=== PATIENT | female | born 1985 | race American Indian/Alaskan Native ===

== ENCOUNTER 2021-10-28 10:26 | Outpatient (CLI) | payer SELFPAY ==
[2021-10-28 10:51] VITALS: BP 121/75
--- NOTE | 2021-10-28 12:25 | Ultrasound Report ---
ULTRASOUND OBSTETRIC LIMITED INDICATION / CLINICAL INFORMATION: presentation. TECHNIQUE: Transabdominal. COMPARISON: None available. FINDINGS: HEART RATE (beats per minute): 153 PRESENTATION: Cephalic. ADDITIONAL FINDINGS: None. IMPRESSION: 1. Cephalic presentation with heart rate of 153 bpm. Signer Name: Juan Chand MD Signed: 10/28/2021 12:21 PM Workstation Name: [id number]
[2021-10-28 12:51] LABS: Basophils % (Auto) 0.3 % (0.0-1.8); Eosinophils % (Auto) 0.3 % (0.0-4.3); Hematocrit 33.5 % (30.3-42.9); Hemoglobin 10.7 gm/dl (10.1-14.3); Lymphocytes # (Auto) 1.7 K/mm3 (1.2-5.4); Lymphocytes % (Auto) 22.7 % (13.4-35.0); Mean Corpuscular HGB Conc 32 % (30-34); Mean Corpuscular Volume 82 fl (79-97); Monocytes # (Auto) 0.7 K/mm3 (0.0-0.8); Monocytes % (Auto) 8.8 % (0.0-7.3); Platelet Count 171 K/mm3 (140-440); Red Blood Count 4.07 M/mm3 (3.65-5.03); Red Cell Distribution Width 15.9 % (13.2-15.2)
[2021-10-28 12:53] LABS: Bilirubin,Urine NEG (Negative); Blood,Urine NEG (Negative); Color,Urine Colorless (Yellow); Protein,Urine <15 mg/dL mg/dL (Negative); Urobilinogen,Urine < 2.0 mg/dL (<2.0)
[2021-10-28 12:54] LABS: RBC,Urine < 1.0 /HPF (0.0-6.0); WBC,Urine < 1.0 /HPF (0.0-6.0)
[2021-10-28 13:01] LABS: Amphetamine Screen,Urine Negative; Benzodiazepines Screen,Urine Negative; Cannabinoid Screen,Urine Negative; Cocaine Screen,Urine Negative; Methadone Screen,Urine Negative; Opiate Screen,Urine Negative
[2021-10-28 13:23] LABS: Hepatitis C Virus Antibody Non-Reactive (NonReactive)
== END 2021-10-28 15:30 | disposition home or self-care (01) ==
LOC: TRG 10:26 → APU 10:26 → TRG 15:30
PROVIDERS: ATTEND Obstetrics & Gynecology
DX: O09.93 Supervision of high risk pregnancy, unspecified, third trimester (principal); Z3A.39 39 weeks gestation of pregnancy
CPT/HCPCS: 36415; 59025; 76815; 80307; 81001; 85025; 86592; 86706; 86762; 86803; 86850; 86900; 86901; 87806

== ENCOUNTER 2021-11-07 19:31 | Inpatient (IN) | payer SELFPAY ==
[2021-11-07] MEDS ORDERED: fentaNYL 100 MCG/2 ML INJ IV PRN (23:31)
[2021-11-07] MEDS ORDERED: METHYLERGONOVINE MALEATE 0.2 MG/ML VIAL IM PRN (23:31)
[2021-11-07] MEDS ORDERED: BUTORPHANOL 2 MG/1 ML INJ IV PRN (23:31)
[2021-11-07] MEDS ORDERED: CARBOPROST TROMETHAMINE 250 MCG/1 ML INJ IM PRN (23:31)
[2021-11-07] MEDS ORDERED: ePHEDrine SULFATE 50 MG/1 ML INJ IV PRN (23:31)
[2021-11-07] MEDS ORDERED: ACETAMINOPHEN 325 MG TAB PO PRN (23:31)
[2021-11-07] MEDS ORDERED: TERBUTALINE 1 MG/1 ML INJ SUB-Q PRN (23:31)
[2021-11-07] MEDS ORDERED: miSOPROStol 200 MCG TAB PR PRN (23:31)
[2021-11-07] MEDS ORDERED: ONDANSETRON 4 MG/2 ML INJ IV PRN (23:31)
--- NOTE | 2021-11-07 23:31 | History and Physical Report ---
History of Present Illness Date of examination: 11/07/21 Date of admission: 11/07/2021 Chief complaint: Contractions History of present illness: 36 y/o at 41 weeks gestation presents to OBT reporting rgeular and painful CTX q 5 min. No VB or LOF. Good FM. She received care at [facility]. In OBT, SVE went from 3 cm to 4 cm. She is admitted to L&D in early labor and to augment labor in lieu of post-due date. Past History Past Medical History: no pertinent history Past Surgical History: no surgical history Family/Genetic History: none - Obstetrical History Expected Date of Delivery: 10/31/21 Actual Gestation: 41 Week(s) 1 Day(s) : 5 Para: 2 Hx # Term Pregnancies: 2 Spontaneous Abortions: 2 Medications and Allergies Allergies Allergy/AdvReac Type Severity Reaction Status Date / Time nalbuphine [From Nubain] AdvReac Itching Verified 10/28/21 10:56 Review of Systems All systems: negative - Vital Signs Vital signs: Vital Signs Pulse Pulse Ox 102 H 100 11/07/21 20:05 11/07/21 20:05 Temp Pulse Resp BP Pulse Ox 85 109/71 100 11/07/21 22:24 11/07/21 20:12 11/07/21 22:24 - Physical Exam Breasts: Positive: normal Cardiovascular: Regular rate Lungs: Positive: Normal air movement Abdomen: Positive: normal appearance Genitourinary (Female): Positive: normal external genitalia, normal perenium Vulva: both: normal Vagina: Positive: normal moisture Uterus: Positive: enlarged Adnexa: both: normal Anus/Rectum: Positive: normal perianal skin Extremities: Positive: normal Deep Tendon Reflex Grade: Normal +2 - Obstetrical FHR: category 1 Uterine Contraction Monitor Mode: External Cervical Dilatation: 4 Cervical Effacement Percentage: 60 station: -3 Uterine Contraction Frequency (min): 5 Results Result Diagrams: 11/07/21 23:27 All other labs normal. Ultrasound: report reviewed (OB US Limited= SLIUP. Vertex. EFW= 3781 g. CHOCO= 14 cm. BPP= 10/10.) Assessment and Plan - Patient Problems (1) 41 weeks gestation of Current Visit: Yes Status: Acute Plan to address problem: care is up-to-date at [facility]. Obtain records in AM. GBS status in unknown at this time. Currently, there are no known risk factors for GBS. If there are, then tx with PCN per CDC MMWR 2010 guidelines. (2) Post term at 41 weeks gestation Current Visit: Yes Status: Acute Plan to address problem: Admit to L&D. Augment with Cytotec. When cervix is further ripened, then AROM and Pitocin. (3) Spontaneous onset of labor Current Visit: Yes Status: Acute Plan to address problem: Admit to L&D. Augment with Cytotec. When cervix is further ripened, then AROM and Pitocin.
[2021-11-07] MEDS ORDERED: OXYTOCIN DRIP 30 UNITS/500 ML BAG IV SCH (23:45)
[2021-11-08 00:11] LABS: Hematocrit 33.7 % (30.3-42.9); Hemoglobin 10.8 gm/dl (10.1-14.3); Mean Corpuscular HGB Conc 32 % (30-34); Mean Corpuscular Volume 82 fl (79-97); Platelet Count 182 K/mm3 (140-440); Red Cell Distribution Width 16.2 % (13.2-15.2)
[2021-11-08] MEDS: LACTATED RINGERS 1,000 ML IV SCH ×3 (01:59→11:34)
[2021-11-08] MEDS ORDERED: ePHEDrine SULFATE 50 MG/1 ML INJ IV PRN (02:00)
[2021-11-08] MEDS ORDERED: NALOXONE 2 MG/2 ML INJ IV PRN (02:00)
--- NOTE | 2021-11-08 02:38 | Progress Note ---
Labor Epidural - Labor Epidural Start Time: 02:06 Stop Time: 02:23 Performed by:: SIRENA CARRANZA Procedure: Patient is requesting epidural for labor pain. H&P and labs reviewed. Procedure explained, questions answered, consent obtained. Patient placed in sitting position with monitors applied. Timeout performed immediately before start of procedure. Prep/drape in usual sterile fashion. Skin localized 3 mL 1% lidocaine at L[3]-L[4] interspace. 17-gauge Touhy epidural needle advanced to CHELSEY with saline at [8] cm x 2 attempts. No blood/CSF noted via epidural needle. Epidural catheter advanced to [12] cm. Negative aspiration for blood and CSF via catheter, negative response to test dose 3 ml 1.5% lidocaine w/ Epi. Sterile dressing applied followed by tape reinforcement. Patient tolerated procedure well. No immediate complications noted.
--- NOTE | 2021-11-08 02:40 | Anesthesia Consultation ---
Anesthesia Consult and Med Hx Date of service: 11/08/21 - Airway Anesthetic Teeth Evaluation: Poor ROM Head & Neck: Adequate Mental/Hyoid Distance: Adequate Mallampati Class: Class II Intubation Access Assessment: Probably Good - Pulmonary Exam CTA: Yes - Cardiac Exam Cardiac Exam: RRR - Pre-Operative Health Status ASA Pre-Surgery Classification: ASA2 Proposed Anesthetic Plan: Epidural - Pre-Anesthesia Comment Pre-Anesthesia Comments: no anesthesia complications with other surgeries - Pulmonary Hx Asthma: No COPD: No Hx Pneumonia: No - Cardiovascular System Hx Hypertension: No - Central Nervous System Hx Seizures: No Hx Psychiatric Problems: No - Endocrine Hx Renal Disease: No Hx End Stage Renal Disease: No Hx Hypothyroidism: No Hx Hyperthyroidism: No - Hematic Hx Anemia: Yes (NOT TAKING IRON) Hx Sickle Cell Disease: No - Other Systems Hx Alcohol Use: Yes (1ST TRIMESTER) Hx Obesity: Yes
[2021-11-08] MEDS: fentaNYL-BUPIV 2 MCG/ML-0.125% 200 MCG/100 ML BAG EPIDURAL SCH ×2 (03:53→11:35)
[2021-11-08] MEDS: miSOPROStol 25 MCG TAB PO SCH ×2 (04:03→07:56)
--- NOTE | 2021-11-08 04:19 | Ultrasound Report ---
ULTRASOUND OBSTETRIC FOLLOW-UP ULTRASOUND BIOPHYSICAL PROFILE INDICATION / CLINICAL INFORMATION: FWB. EFW and CHOCO. Clinical Gestational Age (GA): 41.1 weeks.days COMPARISON: None available. FINDINGS: BREATHING MOVEMENT = 2 GROSS BODY MOVEMENT = 2 TONE = 2 QUALITATIVE AMNIOTIC FLUID VOLUME = 2 TOTAL BIOPHYSICAL SCORE = 8/8 HEART RATE (beats per minute): 124 AMNIOTIC FLUID INDEX (cm) = 14.0 (normal = 7-24 cm) PRESENTATION: Cephalic. ADDITIONAL FINDINGS: Sonographic dates are 39 weeks 5 days with an EDC of 11/10/21. The estimated fet al weight is 3781 +/- 560 g. IMPRESSION: 1. Biophysical Score = 8/8 2. CHOCO 14.0 cm. 3. EFW 3781 +/- 560 g. Signer Name: Quirino Mendoza MD Signed: 11/08/2021 4:15 AM Workstation Name: [id number]
--- NOTE | 2021-11-08 10:35 | Progress Note ---
Assessment and Plan A: IUP @ 41 2/7 Weeks Category I Tracing Face Presentation Protracted Labor AMA GBS Unknown (attempting to get records from [facility]) P: IUPC Placed Start Pitocin Augmentation Start GBS Prophylaxis Multiple Maternal Position Changes Consulted Dr. Rodriguez due to Face presentation; agrees with current plan of care Subjective - Subjective Date of service: 11/08/21 Patient reports: movement normal, other (Resting well under epidural anesthesia) Objective - Vital Signs Vital Signs: Vital Signs - 12hr 11/08/21 11/08/21 11/08/21 00:04 00:09 00:33 Temperature Pulse Rate 91 H 90 86 Respiratory Rate Blood Pressure Blood Pressure [Right] O2 Sat by Pulse 99 100 100 Oximetry O2 Sat by Pulse Oximetry [ Bilateral Throughout] 11/08/21 11/08/21 11/08/21 00:38 00:43 00:48 Temperature Pulse Rate 90 89 82 Respiratory Rate Blood Pressure Blood Pressure [Right] O2 Sat by Pulse 99 99 100 Oximetry O2 Sat by Pulse Oximetry [ Bilateral Throughout] 11/08/21 11/08/21 11/08/21 00:49 00:53 00:58 Temperature Pulse Rate 86 81 92 H Respiratory Rate Blood Pressure 113/72 Blood Pressure [Right] O2 Sat by Pulse 100 98 Oximetry O2 Sat by Pulse 100 Oximetry [ Bilateral Throughout] 11/08/21 11/08/21 11/08/21 01:03 01:16 01:19 Temperature 97.9 F Pulse Rate 92 H 93 H Respiratory Rate Blood Pressure Blood Pressure [Right] O2 Sat by Pulse 99 92 Oximetry O2 Sat by Pulse Oximetry [ Bilateral Throughout] 11/08/21 11/08/21 11/08/21 01:21 01:26 01:31 Temperature Pulse Rate 87 88 84 Respiratory Rate Blood Pressure Blood Pressure [Right] O2 Sat by Pulse 99 99 100 Oximetry O2 Sat by Pulse Oximetry [ Bilateral Throughout] 11/08/21 11/08/21 11/08/21 01:36 01:41 01:46 Temperature Pulse Rate 87 90 94 H Respiratory Rate Blood Pressure Blood Pressure [Right] O2 Sat by Pulse 99 99 100 Oximetry O2 Sat by Pulse Oximetry [ Bilateral Throughout] 11/08/21 11/08/21 11/08/21 01:51 01:56 02:01 Temperature Pulse Rate 83 87 95 H Respiratory Rate Blood Pressure Blood Pressure [Right] O2 Sat by Pulse 99 100 100 Oximetry O2 Sat by Pulse Oximetry [ Bilateral Throughout] 11/08/21 11/08/21 11/08/21 02:03 02:06 02:11 Temperature Pulse Rate 96 H 89 89 Respiratory Rate Blood Pressure Blood Pressure [Right] O2 Sat by Pulse 92 100 100 Oximetry O2 Sat by Pulse Oximetry [ Bilateral Throughout] 11/08/21 11/08/21 11/08/21 02:16 02:21 02:23 Temperature Pulse Rate 99 H 92 H 83 Respiratory Rate Blood Pressure 123/70 Blood Pressure [Right] O2 Sat by Pulse 98 100 Oximetry O2 Sat by Pulse Oximetry [ Bilateral Throughout] 11/08/21 11/08/21 11/08/21 02:25 02:26 02:29 Temperature Pulse Rate 90 85 80 Respiratory Rate Blood Pressure 125/76 116/65 Blood Pressure [Right] O2 Sat by Pulse 94 97 Oximetry O2 Sat by Pulse Oximetry [ Bilateral Throughout] 11/08/21 11/08/21 11/08/21 02:31 02:32 02:35 Temperature Pulse Rate 82 85 79 Respiratory Rate Blood Pressure 114/69 106/60 Blood Pressure [Right] O2 Sat by Pulse 97 93 Oximetry O2 Sat by Pulse Oximetry [ Bilateral Throughout] 11/08/21 11/08/21 11/08/21 02:36 02:38 02:41 Temperature Pulse Rate 82 80 77 Respiratory Rate Blood Pressure 106/59 116/57 Blood Pressure [Right] O2 Sat by Pulse 95 94 97 Oximetry O2 Sat by Pulse Oximetry [ Bilateral Throughout] 11/08/21 11/08/21 11/08/21 02:44 02:46 02:47 Temperature Pulse Rate 75 81 79 Respiratory Rate Blood Pressure 101/53 100/57 Blood Pressure [Right] O2 Sat by Pulse 96 Oximetry O2 Sat by Pulse Oximetry [ Bilateral Throughout] 11/08/21 11/08/21 11/08/21 02:50 02:51 02:53 Temperature Pulse Rate 81 75 82 Respiratory Rate Blood Pressure 95/53 98/56 Blood Pressure [Right] O2 Sat by Pulse 96 Oximetry O2 Sat by Pulse Oximetry [ Bilateral Throughout] 11/08/21 11/08/21 11/08/21 02:56 02:59 03:01 Temperature Pulse Rate 78 81 88 Respiratory Rate Blood Pressure 95/51 89/53 Blood Pressure [Right] O2 Sat by Pulse 96 94 96 Oximetry O2 Sat by Pulse Oximetry [ Bilateral Throughout] 11/08/21 11/08/21 11/08/21 03:02 03:05 03:06 Temperature Pulse Rate 84 82 81 Respiratory Rate Blood Pressure 93/59 91/51 Blood Pressure [Right] O2 Sat by Pulse 94 Oximetry O2 Sat by Pulse Oximetry [ Bilateral Throughout] 11/08/21 11/08/21 11/08/21 03:08 03:11 03:12 Temperature Pulse Rate 81 83 81 Respiratory Rate Blood Pressure 94/52 97/52 Blood Pressure [Right] O2 Sat by Pulse 95 94 Oximetry O2 Sat by Pulse Oximetry [ Bilateral Throughout] 11/08/21 11/08/21 11/08/21 03:14 03:24 03:25 Temperature Pulse Rate 91 H 70 60 Respiratory Rate Blood Pressure 103/59 Blood Pressure [Right] O2 Sat by Pulse 97 93 Oximetry O2 Sat by Pulse Oximetry [ Bilateral Throughout] 11/08/21 11/08/21 11/08/21 03:26 03:29 03:32 Temperature Pulse Rate 90 68 78 Respiratory Rate Blood Pressure 114/67 110/64 106/66 Blood Pressure [Right] O2 Sat by Pulse 98 Oximetry O2 Sat by Pulse Oximetry [ Bilateral Throughout] 11/08/21 11/08/21 11/08/21 03:34 03:35 03:38 Temperature Pulse Rate 78 86 78 Respiratory Rate Blood Pressure 108/68 106/65 Blood Pressure [Right] O2 Sat by Pulse 100 Oximetry O2 Sat by Pulse Oximetry [ Bilateral Throughout] 11/08/21 11/08/21 11/08/21 03:39 03:44 03:49 Temperature Pulse Rate 85 81 88 Respiratory Rate Blood Pressure Blood Pressure [Right] O2 Sat by Pulse 100 98 98 Oximetry O2 Sat by Pulse Oximetry [ Bilateral Throughout] 11/08/21 11/08/21 11/08/21 03:54 03:59 04:04 Temperature Pulse Rate 93 H 86 90 Respiratory Rate Blood Pressure 97/57 Blood Pressure [Right] O2 Sat by Pulse 98 99 98 Oximetry O2 Sat by Pulse Oximetry [ Bilateral Throughout] 11/08/21 11/08/21 11/08/21 04:09 04:14 04:19 Temperature Pulse Rate 88 87 84 Respiratory Rate Blood Pressure Blood Pressure [Right] O2 Sat by Pulse 98 98 100 Oximetry O2 Sat by Pulse Oximetry [ Bilateral Throughout] 11/08/21 11/08/21 11/08/21 04:23 04:24 04:29 Temperature Pulse Rate 82 83 87 Respiratory Rate Blood Pressure 106/57 Blood Pressure [Right] O2 Sat by Pulse 99 97 Oximetry O2 Sat by Pulse Oximetry [ Bilateral Throughout] 11/08/21 11/08/21 11/08/21 04:34 04:39 04:41 Temperature Pulse Rate 81 88 84 Respiratory Rate Blood Pressure 105/65 Blood Pressure [Right] O2 Sat by Pulse 97 97 Oximetry O2 Sat by Pulse Oximetry [ Bilateral Throughout] 11/08/21 11/08/21 11/08/21 04:44 04:49 04:54 Temperature Pulse Rate 87 87 85 Respiratory Rate Blood Pressure Blood Pressure [Right] O2 Sat by Pulse 96 96 97 Oximetry O2 Sat by Pulse Oximetry [ Bilateral Throughout] 11/08/21 11/08/21 11/08/21 04:56 04:59 05:04 Temperature Pulse Rate 85 85 78 Respiratory Rate Blood Pressure 108/66 Blood Pressure [Right] O2 Sat by Pulse 94 98 100 Oximetry O2 Sat by Pulse Oximetry [ Bilateral Throughout] 11/08/21 11/08/21 11/08/21 05:09 05:14 05:19 Temperature Pulse Rate 83 69 81 Respiratory Rate Blood Pressure 97/57 Blood Pressure [Right] O2 Sat by Pulse 100 100 100 Oximetry O2 Sat by Pulse Oximetry [ Bilateral Throughout] 11/08/21 11/08/21 11/08/21 05:25 05:30 05:35 Temperature Pulse Rate 81 79 73 Respiratory Rate Blood Pressure 96/51 Blood Pressure [Right] O2 Sat by Pulse 100 100 100 Oximetry O2 Sat by Pulse Oximetry [ Bilateral Throughout] 11/08/21 11/08/21 11/08/21 05:40 05:45 05:50 Temperature Pulse Rate 72 71 90 Respiratory Rate Blood Pressure 106/57 Blood Pressure [Right] O2 Sat by Pulse 99 96 96 Oximetry O2 Sat by Pulse Oximetry [ Bilateral Throughout] 11/08/21 11/08/21 11/08/21 05:55 05:56 05:59 Temperature Pulse Rate 80 85 83 Respiratory Rate Blood Pressure 104/57 Blood Pressure [Right] O2 Sat by Pulse 95 94 Oximetry O2 Sat by Pulse Oximetry [ Bilateral Throughout] 11/08/21 11/08/21 11/08/21 06:00 06:05 06:06 Temperature Pulse Rate 90 95 H 98 H Respiratory Rate Blood Pressure Blood Pressure [Right] O2 Sat by Pulse 95 95 94 Oximetry O2 Sat by Pulse Oximetry [ Bilateral Throughout] 11/08/21 11/08/21 11/08/21 06:10 06:11 06:13 Temperature Pulse Rate 92 H 96 H 84 Respiratory Rate Blood Pressure 108/61 Blood Pressure [Right] O2 Sat by Pulse 95 94 Oximetry O2 Sat by Pulse Oximetry [ Bilateral Throughout] 11/08/21 11/08/21 11/08/21 06:15 06:20 06:25 Temperature Pulse Rate 89 93 H 98 H Respiratory Rate Blood Pressure Blood Pressure [Right] O2 Sat by Pulse 95 97 95 Oximetry O2 Sat by Pulse Oximetry [ Bilateral Throughout] 11/08/21 11/08/21 11/08/21 06:26 06:30 06:35 Temperature Pulse Rate 88 81 85 Respiratory Rate Blood Pressure 101/59 Blood Pressure [Right] O2 Sat by Pulse 88 97 98 Oximetry O2 Sat by Pulse Oximetry [ Bilateral Throughout] 11/08/21 11/08/21 11/08/21 06:40 06:45 06:50 Temperature Pulse Rate 89 79 89 Respiratory Rate Blood Pressure 113/61 Blood Pressure [Right] O2 Sat by Pulse 99 100 99 Oximetry O2 Sat by Pulse Oximetry [ Bilateral Throughout] 11/08/21 11/08/21 11/08/21 06:51 06:55 06:57 Temperature Pulse Rate 97 H 76 103 H Respiratory Rate Blood Pressure 101/59 Blood Pressure [Right] O2 Sat by Pulse 94 99 93 Oximetry O2 Sat by Pulse Oximetry [ Bilateral Throughout] 11/08/21 11/08/21 11/08/21 07:00 07:05 07:07 Temperature Pulse Rate 88 84 92 H Respiratory Rate Blood Pressure 93/54 Blood Pressure [Right] O2 Sat by Pulse 99 98 Oximetry O2 Sat by Pulse Oximetry [ Bilateral Throughout] 11/08/21 11/08/21 11/08/21 07:10 07:15 07:18 Temperature Pulse Rate 93 H 89 Respiratory Rate Blood Pressure Blood Pressure [Right] O2 Sat by Pulse 99 99 88 Oximetry O2 Sat by Pulse Oximetry [ Bilateral Throughout] 11/08/21 11/08/21 11/08/21 07:20 07:25 07:30 Temperature 97.6 F Pulse Rate 95 H 84 88 Respiratory 16 Rate Blood Pressure Blood Pressure 95/61 [Right] O2 Sat by Pulse 100 100 100 Oximetry O2 Sat by Pulse Oximetry [ Bilateral Throughout] 11/08/21 11/08/21 11/08/21 07:35 07:38 07:40 Temperature Pulse Rate 88 91 H 76 Respiratory Rate Blood Pressure 95/61 Blood Pressure [Right] O2 Sat by Pulse 100 100 Oximetry O2 Sat by Pulse 100 Oximetry [ Bilateral Throughout] 11/08/21 11/08/21 11/08/21 07:45 07:49 07:50 Temperature Pulse Rate 77 83 94 H Respiratory Rate Blood Pressure 99/58 Blood Pressure [Right] O2 Sat by Pulse 100 99 Oximetry O2 Sat by Pulse Oximetry [ Bilateral Throughout] 11/08/21 11/08/21 11/08/21 07:55 08:00 08:05 Temperature Pulse Rate 82 89 77 Respiratory Rate Blood Pressure Blood Pressure [Right] O2 Sat by Pulse 99 99 97 Oximetry O2 Sat by Pulse Oximetry [ Bilateral Throughout] 11/08/21 11/08/21 11/08/21 08:06 08:10 08:15 Temperature Pulse Rate 80 95 H 86 Respiratory Rate Blood Pressure 88/53 Blood Pressure [Right] O2 Sat by Pulse 95 99 Oximetry O2 Sat by Pulse Oximetry [ Bilateral Throughout] 11/08/21 11/08/21 11/08/21 08:19 08:20 08:25 Temperature Pulse Rate 78 78 78 Respiratory Rate Blood Pressure 83/46 Blood Pressure [Right] O2 Sat by Pulse 97 98 Oximetry O2 Sat by Pulse Oximetry [ Bilateral Throughout] 11/08/21 11/08/21 11/08/21 08:30 08:35 08:40 Temperature Pulse Rate 77 85 78 Respiratory Rate Blood Pressure Blood Pressure [Right] O2 Sat by Pulse 98 99 99 Oximetry O2 Sat by Pulse Oximetry [ Bilateral Throughout] 11/08/21 11/08/21 11/08/21 08:45 08:49 08:50 Temperature Pulse Rate 83 70 79 Respiratory Rate Blood Pressure Blood Pressure [Right] O2 Sat by Pulse 99 89 98 Oximetry O2 Sat by Pulse Oximetry [ Bilateral Throughout] 11/08/21 11/08/21 11/08/21 08:51 08:55 09:00 Temperature Pulse Rate 78 89 81 Respiratory Rate Blood Pressure 77/40 Blood Pressure [Right] O2 Sat by Pulse 98 97 Oximetry O2 Sat by Pulse Oximetry [ Bilateral Throughout] 11/08/21 11/08/21 11/08/21 09:04 09:05 09:08 Temperature Pulse Rate 78 89 89 Respiratory Rate Blood Pressure 90/55 Blood Pressure [Right] O2 Sat by Pulse 100 94 Oximetry O2 Sat by Pulse Oximetry [ Bilateral Throughout] 11/08/21 11/08/21 11/08/21 09:10 09:15 09:19 Temperature Pulse Rate 80 93 H 83 Respiratory Rate Blood Pressure 120/68 Blood Pressure [Right] O2 Sat by Pulse 99 96 Oximetry O2 Sat by Pulse Oximetry [ Bilateral Throughout] 11/08/21 11/08/21 11/08/21 09:20 09:25 09:30 Temperature Pulse Rate 85 81 87 Respiratory Rate Blood Pressure Blood Pressure [Right] O2 Sat by Pulse 99 97 94 Oximetry O2 Sat by Pulse Oximetry [ Bilateral Throughout] 11/08/21 11/08/21 11/08/21 09:34 09:35 09:37 Temperature Pulse Rate 84 92 H 93 H Respiratory Rate Blood Pressure 105/60 Blood Pressure [Right] O2 Sat by Pulse 99 92 Oximetry O2 Sat by Pulse Oximetry [ Bilateral Throughout] 11/08/21 11/08/21 11/08/21 09:40 09:45 09:49 Temperature Pulse Rate 91 H 100 H 89 Respiratory Rate Blood Pressure 117/77 Blood Pressure [Right] O2 Sat by Pulse 98 98 Oximetry O2 Sat by Pulse Oximetry [ Bilateral Throughout] 11/08/21 11/08/21 11/08/21 09:50 09:55 09:56 Temperature Pulse Rate 86 94 H 82 Respiratory Rate Blood Pressure Blood Pressure [Right] O2 Sat by Pulse 100 100 84 Oximetry O2 Sat by Pulse Oximetry [ Bilateral Throughout] 11/08/21 11/08/21 11/08/21 10:00 10:05 10:10 Temperature Pulse Rate 88 75 79 Respiratory Rate Blood Pressure 114/61 Blood Pressure [Right] O2 Sat by Pulse 100 100 100 Oximetry O2 Sat by Pulse Oximetry [ Bilateral Throughout] 11/08/21 11/08/21 11/08/21 10:15 10:20 10:25 Temperature Pulse Rate 81 80 76 Respiratory Rate Blood Pressure 125/80 Blood Pressure [Right] O2 Sat by Pulse 100 100 100 Oximetry O2 Sat by Pulse Oximetry [ Bilateral Throughout] - Exam Breasts: normal Cardiovascular: Regular rate Lungs: Clear to auscultation, Normal air movement Abdomen: Present: normal appearance, soft, normal bowel sounds Uterus: Present: normal, firm, fundal height above umbilicus FHR: category 1 Uterine Contraction Monitor Mode: Internal Cervical Dilatation: 4 (Leaking a large amount of clear fluid; Face pre sentation) Cervical Effacement Percentage: 50 station: -4 Uterine Contraction Frequency (min): 4 Uterine Contraction Pattern: Regular Uterine Tone Measurement Phase: Resting Uterine Contraction Intensity: Moderate Extremities: normal - Labs Labs: Abnormal Labs 11/07/21 23:27 MCH 26 L RDW 16.2 H Laboratory Results - last 24 hr 11/07/21 11/07/21 23:27 23:27 WBC 7.8 RBC 4.10 Hgb 10.8 Hct 33.7 MCV 82 MCH 26 L MCHC 32 RDW 16.2 H Plt Count 182 Blood Type A POSITIVE Antibody Screen Negative
[2021-11-08] MEDS ORDERED: AMPICILLIN/NS 2 GM/100 ML 2 GM/100 ML BAG IV SCH (11:00)
--- NOTE | 2021-11-08 13:17 | Progress Note ---
Subjective - Subjective Date of service: 11/08/21 Interval history: FHT Cat 2 Face presentation mentum posterior no cervical change plan for operative delivery informed consent Miguel A Rodriguez MD Patient reports: movement normal, other (Resting well under epidural anesthesia) Objective - Vital Signs Vital Signs: Vital Signs - 12hr 11/08/21 11/08/21 11/08/21 01:19 01:21 01:26 Temperature 97.9 F Pulse Rate 87 88 Respiratory Rate Blood Pressure Blood Pressure [Right] O2 Sat by Pulse 99 99 Oximetry O2 Sat by Pulse Oximetry [ Bilateral Throughout] 11/08/21 11/08/21 11/08/21 01:31 01:36 01:41 Temperature Pulse Rate 84 87 90 Respiratory Rate Blood Pressure Blood Pressure [Right] O2 Sat by Pulse 100 99 99 Oximetry O2 Sat by Pulse Oximetry [ Bilateral Throughout] 11/08/21 11/08/21 11/08/21 01:46 01:51 01:56 Temperature Pulse Rate 94 H 83 87 Respiratory Rate Blood Pressure Blood Pressure [Right] O2 Sat by Pulse 100 99 100 Oximetry O2 Sat by Pulse Oximetry [ Bilateral Throughout] 11/08/21 11/08/21 11/08/21 02:01 02:03 02:06 Temperature Pulse Rate 95 H 96 H 89 Respiratory Rate Blood Pressure Blood Pressure [Right] O2 Sat by Pulse 100 92 100 Oximetry O2 Sat by Pulse Oximetry [ Bilateral Throughout] 11/08/21 11/08/21 11/08/21 02:11 02:16 02:21 Temperature Pulse Rate 89 99 H 92 H Respiratory Rate Blood Pressure Blood Pressure [Right] O2 Sat by Pulse 100 98 100 Oximetry O2 Sat by Pulse Oximetry [ Bilateral Throughout] 11/08/21 11/08/21 11/08/21 02:23 02:25 02:26 Temperature Pulse Rate 83 90 85 Respiratory Rate Blood Pressure 123/70 125/76 Blood Pressure [Right] O2 Sat by Pulse 94 97 Oximetry O2 Sat by Pulse Oximetry [ Bilateral Throughout] 11/08/21 11/08/21 11/08/21 02:29 02:31 02:32 Temperature Pulse Rate 80 82 85 Respiratory Rate Blood Pressure 116/65 114/69 Blood Pressure [Right] O2 Sat by Pulse 97 93 Oximetry O2 Sat by Pulse Oximetry [ Bilateral Throughout] 11/08/21 11/08/21 11/08/21 02:35 02:36 02:38 Temperature Pulse Rate 79 82 80 Respiratory Rate Blood Pressure 106/60 106/59 Blood Pressure [Right] O2 Sat by Pulse 95 94 Oximetry O2 Sat by Pulse Oximetry [ Bilateral Throughout] 11/08/21 11/08/21 11/08/21 02:41 02:44 02:46 Temperature Pulse Rate 77 75 81 Respiratory Rate Blood Pressure 116/57 101/53 Blood Pressure [Right] O2 Sat by Pulse 97 96 Oximetry O2 Sat by Pulse Oximetry [ Bilateral Throughout] 11/08/21 11/08/21 11/08/21 02:47 02:50 02:51 Temperature Pulse Rate 79 81 75 Respiratory Rate Blood Pressure 100/57 95/53 Blood Pressure [Right] O2 Sat by Pulse 96 Oximetry O2 Sat by Pulse Oximetry [ Bilateral Throughout] 11/08/21 11/08/21 11/08/21 02:53 02:56 02:59 Temperature Pulse Rate 82 78 81 Respiratory Rate Blood Pressure 98/56 95/51 89/53 Blood Pressure [Right] O2 Sat by Pulse 96 94 Oximetry O2 Sat by Pulse Oximetry [ Bilateral Throughout] 11/08/21 11/08/21 11/08/21 03:01 03:02 03:05 Temperature Pulse Rate 88 84 82 Respiratory Rate Blood Pressure 93/59 91/51 Blood Pressure [Right] O2 Sat by Pulse 96 Oximetry O2 Sat by Pulse Oximetry [ Bilateral Throughout] 11/08/21 11/08/21 11/08/21 03:06 03:08 03:11 Temperature Pulse Rate 81 81 83 Respiratory Rate Blood Pressure 94/52 97/52 Blood Pressure [Right] O2 Sat by Pulse 94 95 Oximetry O2 Sat by Pulse Oximetry [ Bilateral Throughout] 11/08/21 11/08/21 11/08/21 03:12 03:14 03:24 Temperature Pulse Rate 81 91 H 70 Respiratory Rate Blood Pressure 103/59 Blood Pressure [Right] O2 Sat by Pulse 94 97 Oximetry O2 Sat by Pulse Oximetry [ Bilateral Throughout] 11/08/21 11/08/21 11/08/21 03:25 03:26 03:29 Temperature Pulse Rate 60 90 68 Respiratory Rate Blood Pressure 114/67 110/64 Blood Pressure [Right] O2 Sat by Pulse 93 98 Oximetry O2 Sat by Pulse Oximetry [ Bilateral Throughout] 11/08/21 11/08/21 11/08/21 03:32 03:34 03:35 Temperature Pulse Rate 78 78 86 Respiratory Rate Blood Pressure 106/66 108/68 Blood Pressure [Right] O2 Sat by Pulse 100 Oximetry O2 Sat by Pulse Oximetry [ Bilateral Throughout] 11/08/21 11/08/21 11/08/21 03:38 03:39 03:44 Temperature Pulse Rate 78 85 81 Respiratory Rate Blood Pressure 106/65 Blood Pressure [Right] O2 Sat by Pulse 100 98 Oximetry O2 Sat by Pulse Oximetry [ Bilateral Throughout] 11/08/21 11/08/21 11/08/21 03:49 03:54 03:59 Temperature Pulse Rate 88 93 H 86 Respiratory Rate Blood Pressure 97/57 Blood Pressure [Right] O2 Sat by Pulse 98 98 99 Oximetry O2 Sat by Pulse Oximetry [ Bilateral Throughout] 11/08/21 11/08/21 11/08/21 04:04 04:09 04:14 Temperature Pulse Rate 90 88 87 Respiratory Rate Blood Pressure Blood Pressure [Right] O2 Sat by Pulse 98 98 98 Oximetry O2 Sat by Pulse Oximetry [ Bilateral Throughout] 11/08/21 11/08/21 11/08/21 04:19 04:23 04:24 Temperature Pulse Rate 84 82 83 Respiratory Rate Blood Pressure 106/57 Blood Pressure [Right] O2 Sat by Pulse 100 99 Oximetry O2 Sat by Pulse Oximetry [ Bilateral Throughout] 11/08/21 11/08/21 11/08/21 04:29 04:34 04:39 Temperature Pulse Rate 87 81 88 Respiratory Rate Blood Pressure Blood Pressure [Right] O2 Sat by Pulse 97 97 97 Oximetry O2 Sat by Pulse Oximetry [ Bilateral Throughout] 11/08/21 11/08/21 11/08/21 04:41 04:44 04:49 Temperature Pulse Rate 84 87 87 Respiratory Rate Blood Pressure 105/65 Blood Pressure [Right] O2 Sat by Pulse 96 96 Oximetry O2 Sat by Pulse Oximetry [ Bilateral Throughout] 11/08/21 11/08/21 11/08/21 04:54 04:56 04:59 Temperature Pulse Rate 85 85 85 Respiratory Rate Blood Pressure 108/66 Blood Pressure [Right] O2 Sat by Pulse 97 94 98 Oximetry O2 Sat by Pulse Oximetry [ Bilateral Throughout] 11/08/21 11/08/21 11/08/21 05:04 05:09 05:14 Temperature Pulse Rate 78 83 69 Respiratory Rate Blood Pressure 97/57 Blood Pressure [Right] O2 Sat by Pulse 100 100 100 Oximetry O2 Sat by Pulse Oximetry [ Bilateral Throughout] 11/08/21 11/08/21 11/08/21 05:19 05:25 05:30 Temperature Pulse Rate 81 81 79 Respiratory Rate Blood Pressure 96/51 Blood Pressure [Right] O2 Sat by Pulse 100 100 100 Oximetry O2 Sat by Pulse Oximetry [ Bilateral Throughout] 11/08/21 11/08/21 11/08/21 05:35 05:40 05:45 Temperature Pulse Rate 73 72 71 Respiratory Rate Blood Pressure 106/57 Blood Pressure [Right] O2 Sat by Pulse 100 99 96 Oximetry O2 Sat by Pulse Oximetry [ Bilateral Throughout] 11/08/21 11/08/21 11/08/21 05:50 05:55 05:56 Temperature Pulse Rate 90 80 85 Respiratory Rate Blood Pressure 104/57 Blood Pressure [Right] O2 Sat by Pulse 96 95 Oximetry O2 Sat by Pulse Oximetry [ Bilateral Throughout] 11/08/21 11/08/21 11/08/21 05:59 06:00 06:05 Temperature Pulse Rate 83 90 95 H Respiratory Rate Blood Pressure Blood Pressure [Right] O2 Sat by Pulse 94 95 95 Oximetry O2 Sat by Pulse Oximetry [ Bilateral Throughout] 11/08/21 11/08/21 11/08/21 06:06 06:10 06:11 Temperature Pulse Rate 98 H 92 H 96 H Respiratory Rate Blood Pressure 108/61 Blood Pressure [Right] O2 Sat by Pulse 94 95 Oximetry O2 Sat by Pulse Oximetry [ Bilateral Throughout] 11/08/21 11/08/21 11/08/21 06:13 06:15 06:20 Temperature Pulse Rate 84 89 93 H Respiratory Rate Blood Pressure Blood Pressure [Right] O2 Sat by Pulse 94 95 97 Oximetry O2 Sat by Pulse Oximetry [ Bilateral Throughout] 11/08/21 11/08/21 11/08/21 06:25 06:26 06:30 Temperature Pulse Rate 98 H 88 81 Respiratory Rate Blood Pressure 101/59 Blood Pressure [Right] O2 Sat by Pulse 95 88 97 Oximetry O2 Sat by Pulse Oximetry [ Bilateral Throughout] 11/08/21 11/08/21 11/08/21 06:35 06:40 06:45 Temperature Pulse Rate 85 89 79 Respiratory Rate Blood Pressure 113/61 Blood Pressure [Right] O2 Sat by Pulse 98 99 100 Oximetry O2 Sat by Pulse Oximetry [ Bilateral Throughout] 11/08/21 11/08/21 11/08/21 06:50 06:51 06:55 Temperature Pulse Rate 89 97 H 76 Respiratory Rate Blood Pressure 101/59 Blood Pressure [Right] O2 Sat by Pulse 99 94 99 Oximetry O2 Sat by Pulse Oximetry [ Bilateral Throughout] 11/08/21 11/08/21 11/08/21 06:57 07:00 07:05 Temperature Pulse Rate 103 H 88 84 Respiratory Rate Blood Pressure Blood Pressure [Right] O2 Sat by Pulse 93 99 98 Oximetry O2 Sat by Pulse Oximetry [ Bilateral Throughout] 11/08/21 11/08/21 11/08/21 07:07 07:10 07:15 Temperature Pulse Rate 92 H 93 H 89 Respiratory Rate Blood Pressure 93/54 Blood Pressure [Right] O2 Sat by Pulse 99 99 Oximetry O2 Sat by Pulse Oximetry [ Bilateral Throughout] 11/08/21 11/08/21 11/08/21 07:18 07:20 07:25 Temperature Pulse Rate 95 H 84 Respiratory Rate Blood Pressure Blood Pressure [Right] O2 Sat by Pulse 88 100 100 Oximetry O2 Sat by Pulse Oximetry [ Bilateral Throughout] 11/08/21 11/08/21 11/08/21 07:30 07:35 07:38 Temperature 97.6 F Pulse Rate 88 88 91 H Respiratory 16 Rate Blood Pressure 95/61 Blood Pressure 95/61 [Right] O2 Sat by Pulse 100 100 Oximetry O2 Sat by Pulse 100 Oximetry [ Bilateral Throughout] 11/08/21 11/08/21 11/08/21 07:40 07:45 07:49 Temperature Pulse Rate 76 77 83 Respiratory Rate Blood Pressure 99/58 Blood Pressure [Right] O2 Sat by Pulse 100 100 Oximetry O2 Sat by Pulse Oximetry [ Bilateral Throughout] 11/08/21 11/08/21 11/08/21 07:50 07:55 08:00 Temperature Pulse Rate 94 H 82 89 Respiratory Rate Blood Pressure Blood Pressure [Right] O2 Sat by Pulse 99 99 99 Oximetry O2 Sat by Pulse Oximetry [ Bilateral Throughout] 11/08/21 11/08/21 11/08/21 08:05 08:06 08:10 Temperature Pulse Rate 77 80 95 H Respiratory Rate Blood Pressure 88/53 Blood Pressure [Right] O2 Sat by Pulse 97 95 Oximetry O2 Sat by Pulse Oximetry [ Bilateral Throughout] 11/08/21 11/08/21 11/08/21 08:15 08:19 08:20 Temperature Pulse Rate 86 78 78 Respiratory Rate Blood Pressure 83/46 Blood Pressure [Right] O2 Sat by Pulse 99 97 Oximetry O2 Sat by Pulse Oximetry [ Bilateral Throughout] 11/08/21 11/08/21 11/08/21 08:25 08:30 08:35 Temperature Pulse Rate 78 77 85 Respiratory Rate Blood Pressure Blood Pressure [Right] O2 Sat by Pulse 98 98 99 Oximetry O2 Sat by Pulse Oximetry [ Bilateral Throughout] 11/08/21 11/08/21 11/08/21 08:40 08:45 08:49 Temperature Pulse Rate 78 83 70 Respiratory Rate Blood Pressure Blood Pressure [Right] O2 Sat by Pulse 99 99 89 Oximetry O2 Sat by Pulse Oximetry [ Bilateral Throughout] 11/08/21 11/08/21 11/08/21 08:50 08:51 08:55 Temperature Pulse Rate 79 78 89 Respiratory Rate Blood Pressure 77/40 Blood Pressure [Right] O2 Sat by Pulse 98 98 Oximetry O2 Sat by Pulse Oximetry [ Bilateral Throughout] 11/08/21 11/08/21 11/08/21 09:00 09:04 09:05 Temperature Pulse Rate 81 78 89 Respiratory Rate Blood Pressure 90/55 Blood Pressure [Right] O2 Sat by Pulse 97 100 Oximetry O2 Sat by Pulse Oximetry [ Bilateral Throughout] 11/08/21 11/08/21 11/08/21 09:08 09:10 09:15 Temperature Pulse Rate 89 80 93 H Respiratory Rate Blood Pressure Blood Pressure [Right] O2 Sat by Pulse 94 99 96 Oximetry O2 Sat by Pulse Oximetry [ Bilateral Throughout] 11/08/21 11/08/21 11/08/21 09:19 09:20 09:25 Temperature Pulse Rate 83 85 81 Respiratory Rate Blood Pressure 120/68 Blood Pressure [Right] O2 Sat by Pulse 99 97 Oximetry O2 Sat by Pulse Oximetry [ Bilateral Throughout] 11/08/21 11/08/21 11/08/21 09:30 09:34 09:35 Temperature Pulse Rate 87 84 92 H Respiratory Rate Blood Pressure 105/60 Blood Pressure [Right] O2 Sat by Pulse 94 99 Oximetry O2 Sat by Pulse Oximetry [ Bilateral Throughout] 03/23/22 03/23/22 03/23/22 09:37 09:40 09:45 Temperature Pulse Rate 93 H 91 H 100 H Respiratory Rate Blood Pressure Blood Pressure [Right] O2 Sat by Pulse 92 98 98 Oximetry O2 Sat by Pulse Oximetry [ Bilateral Throughout] 11/08/21 11/08/21 11/08/21 09:49 09:50 09:55 Temperature Pulse Rate 89 86 94 H Respiratory Rate Blood Pressure 117/77 Blood Pressure [Right] O2 Sat by Pulse 100 100 Oximetry O2 Sat by Pulse Oximetry [ Bilateral Throughout] 11/08/21 11/08/21 11/08/21 09:56 10:00 10:05 Temperature Pulse Rate 82 88 75 Respiratory Rate Blood Pressure 114/61 Blood Pressure [Right] O2 Sat by Pulse 84 100 100 Oximetry O2 Sat by Pulse Oximetry [ Bilateral Throughout] 11/08/21 11/08/21 11/08/21 10:10 10:15 10:20 Temperature Pulse Rate 79 81 80 Respiratory Rate Blood Pressure 125/80 Blood Pressure [Right] O2 Sat by Pulse 100 100 100 Oximetry O2 Sat by Pulse Oximetry [ Bilateral Throughout] 11/08/21 11/08/21 11/08/21 10:25 10:30 10:35 Temperature Pulse Rate 76 88 72 Respiratory Rate Blood Pressure 124/78 Blood Pressure [Right] O2 Sat by Pulse 100 90 100 Oximetry O2 Sat by Pulse Oximetry [ Bilateral Throughout] 11/08/21 11/08/21 11/08/21 10:40 10:44 10:45 Temperature Pulse Rate 94 H 84 84 Respiratory Rate Blood Pressure Blood Pressure [Right] O2 Sat by Pulse 99 93 100 Oximetry O2 Sat by Pulse Oximetry [ Bilateral Throughout] 11/08/21 11/08/21 11/08/21 10:49 10:50 10:55 Temperature Pulse Rate 90 87 93 H Respiratory Rate Blood Pressure 123/77 Blood Pressure [Right] O2 Sat by Pulse 100 99 Oximetry O2 Sat by Pulse Oximetry [ Bilateral Throughout] 11/08/21 11/08/21 11/08/21 11:00 11:04 11:05 Temperature Pulse Rate 83 78 97 H Respiratory Rate Blood Pressure 122/70 Blood Pressure [Right] O2 Sat by Pulse 100 100 Oximetry O2 Sat by Pulse Oximetry [ Bilateral Throughout] 11/08/21 11/08/21 11/08/21 11:10 11:15 11:20 Temperature Pulse Rate 77 83 88 Respiratory Rate Blood Pressure Blood Pressure [Right] O2 Sat by Pulse 100 100 100 Oximetry O2 Sat by Pulse Oximetry [ Bilateral Throughout] 11/08/21 11/08/21 11/08/21 11:21 11:25 11:30 Temperature Pulse Rate 81 82 86 Respiratory Rate Blood Pressure 107/63 Blood Pressure [Right] O2 Sat by Pulse 97 99 Oximetry O2 Sat by Pulse Oximetry [ Bilateral Throughout] 11/08/21 11/08/21 11/08/21 11:35 11:40 11:45 Temperature Pulse Rate 90 92 H 89 Respiratory Rate Blood Pressure 93/55 Blood Pressure [Right] O2 Sat by Pulse 97 99 99 Oximetry O2 Sat by Pulse Oximetry [ Bilateral Throughout] 11/08/21 11/08/21 11/08/21 11:49 11:50 11:55 Temperature Pulse Rate 86 103 H 87 Respiratory Rate Blood Pressure 90/51 Blood Pressure [Right] O2 Sat by Pulse 99 97 Oximetry O2 Sat by Pulse Oximetry [ Bilateral Throughout] 11/08/21 11/08/21 11/08/21 12:00 12:04 12:05 Temperature Pulse Rate 85 74 83 Respiratory Rate Blood Pressure 102/56 Blood Pressure [Right] O2 Sat by Pulse 98 98 Oximetry O2 Sat by Pulse Oximetry [ Bilateral Throughout] 11/08/21 11/08/21 11/08/21 12:08 12:10 12:15 Temperature Pulse Rate 74 77 87 Respiratory Rate Blood Pressure Blood Pressure [Right] O2 Sat by Pulse 92 98 94 Oximetry O2 Sat by Pulse Oximetry [ Bilateral Throughout] 11/08/21 11/08/21 11/08/21 12:20 12:25 12:30 Temperature Pulse Rate 82 77 79 Respiratory Rate Blood Pressure Blood Pressure [Right] O2 Sat by Pulse 99 100 98 Oximetry O2 Sat by Pulse Oximetry [ Bilateral Throughout] 11/08/21 11/08/21 11/08/21 12:35 12:40 12:45 Temperature Pulse Rate 79 80 78 Respiratory Rate Blood Pressure 115/73 Blood Pressure [Right] O2 Sat by Pulse 99 93 99 Oximetry O2 Sat by Pulse Oximetry [ Bilateral Throughout] 11/08/21 11/08/21 11/08/21 12:49 12:50 12:55 Temperature Pulse Rate 78 76 70 Respiratory Rate Blood Pressure Blood Pressure [Right] O2 Sat by Pulse 94 97 96 Oximetry O2 Sat by Pulse Oximetry [ Bilateral Throughout] 11/08/21 11/08/21 11/08/21 12:56 13:00 13:05 Temperature Pulse Rate 79 73 74 Respiratory Rate Blood Pressure Blood Pressure [Right] O2 Sat by Pulse 93 96 99 Oximetry O2 Sat by Pulse Oximetry [ Bilateral Throughout] 11/08/21 11/08/21 13:10 13:14 Temperature Pulse Rate 70 76 Respiratory Rate Blood Pressure 100/67 Blood Pressure [Right] O2 Sat by Pulse 98 Oximetry O2 Sat by Pulse Oximetry [ Bilateral Throughout] - Labs Labs: Abnormal Labs 11/07/21 23:27 MCH 26 L RDW 16.2 H Laboratory Results - last 24 hr 11/07/21 11/07/21 11/08/21 23:27 23:27 Unknown WBC 7.8 RBC 4.10 Hgb 10.8 Hct 33.7 MCV 82 MCH 26 L MCHC 32 RDW 16.2 H Plt Count 182 SARS-CoV-2 (PCR) Negative Blood Type A POSITIVE Antibody Screen Negative
[2021-11-08] MEDS ORDERED: FAMOTIDINE 20 MG/2 ML INJ IV ONE (13:42)
[2021-11-08] MEDS ORDERED: METOCLOPRAMIDE 10 MG/2 ML INJ IV ONE (13:42)
[2021-11-08] MEDS ORDERED: BICITRA ORAL LIQD 30ML PO ONE (13:42)
[2021-11-08] MEDS ORDERED: BUPIVACAINE/PF (0.5%) 5 MG/1 ML 10 ML VIAL INFILTRATI ONE ×2 (13:52)
--- NOTE | 2021-11-08 13:57 | Anesthesia Day of Surgery ---
Anesthesia Day of Surgery - Day of Surgery Patient Examined: Yes Patient H&P Reviewed: Yes Patient is NPO: Yes
[2021-11-08] MEDS ORDERED: ceFAZolin/STERILE WATER 2 GM/20 ML SYRINGE IV NR (14:00)
[2021-11-08] MEDS ORDERED: ONDANSETRON 4 MG/2 ML INJ ONE (14:01)
[2021-11-08] MEDS ORDERED: SODIUM CHLORIDE 0.9% IRR 1,500 ML BOTTLE IR ONE (14:20)
[2021-11-08] MEDS ORDERED: WATER FOR IRRIG STERILE 1,500 ML BOTTLE IR ONE (14:21)
[2021-11-08] MEDS ORDERED: miSOPROStol 200 MCG TAB ONE (14:23)
[2021-11-08] MEDS ORDERED: METHYLERGONOVINE MALEATE 0.2 MG/ML VIAL IM ONE (14:23)
[2021-11-08] MEDS ORDERED: CARBOPROST TROMETHAMINE 250 MCG/1 ML INJ IM ONE (14:23)
[2021-11-08] MEDS ORDERED: ePHEDrine SULFATE 50 MG/1 ML INJ ONE (14:26)
[2021-11-08] MEDS ORDERED: KETAMINE/STERILE WATER 50 MG/ML SYRINGE ONE (14:55)
[2021-11-08] MEDS ORDERED: SUCCINYLCHOLINE CHLORIDE 200 MG/10 ML INJ MDV ONE (14:55)
[2021-11-08] MEDS ORDERED: AMPICILLIN/NS 1 GM/50 ML 1 GM/50 ML BAG IV SCH (15:00)
[2021-11-08] MEDS ORDERED: propofoL 200 MG/20 ML VIAL IV ONE (15:00)
[2021-11-08] MEDS ORDERED: MIDAZOLAM 5 MG/5 ML INJ MDV IV ONE (15:13)
[2021-11-08 15:27] LABS: Basophils % (Auto) 0.2 % (0.0-1.8); Eosinophils % (Auto) 0.1 % (0.0-4.3); Hematocrit 31.2 % (30.3-42.9); Hemoglobin 9.8 gm/dl (10.1-14.3); Lymphocytes # (Auto) 2.7 K/mm3 (1.2-5.4); Lymphocytes % (Auto) 18.8 % (13.4-35.0); Mean Corpuscular HGB Conc 31 % (30-34); Mean Corpuscular Volume 84 fl (79-97); Monocytes # (Auto) 1.3 K/mm3 (0.0-0.8); Monocytes % (Auto) 9.2 % (0.0-7.3); Platelet Count 143 K/mm3 (140-440); Red Blood Count 3.72 M/mm3 (3.65-5.03); Red Cell Distribution Width 16.7 % (13.2-15.2)
[2021-11-08] MEDS ORDERED: HYDROmorphone 1 MG/1 ML INJ ONE ×2 (15:33)
[2021-11-08 15:40] LABS: INR 0.94 (0.87-1.13)
[2021-11-08 15:41] LABS: Partial Thromboplastin Time 28.4 Sec. (24.2-36.6)
[2021-11-08] MEDS ORDERED: LACTATED RINGERS 2,000 ML ONE (15:52)
[2021-11-08] MEDS ORDERED: SODIUM CHLORIDE 0.9% 500 ML 1,000 ML ONE (15:52)
[2021-11-08] MEDS ORDERED: LACTATED RINGERS 1,000 ML ONE ×2 (15:55→16:11)
[2021-11-08 15:59] LABS: Alanine Aminotransferase 9 units/L (7-56); Albumin 2.7 g/dL (3.9-5); Blood Urea Nitrogen 4 mg/dL (7-17); Calcium 8.6 mg/dL (8.4-10.2); Hemolysis Index 3
[2021-11-08 16:00] LABS: BUN/Creatinine Ratio 10
[2021-11-08] MEDS ORDERED: NEOSTIGMINE 10MG/10 ML INJ MDV ONE (16:02)
[2021-11-08] MEDS ORDERED: GLYCOPYRROLATE 0.4 MG/2 ML INJ ONE (16:02)
[2021-11-08] MEDS ORDERED: dexAMETHasone 20 MG/5 ML VIAL ONE (16:11)
[2021-11-08] MEDS ORDERED: SENNOSIDES 8.6 MG TAB PO PRN (16:26)
[2021-11-08] MEDS ORDERED: oxyCODONE /ACETAMINOPHEN 5-325MG TAB PO PRN (16:26)
[2021-11-08] MEDS ORDERED: HYDROCORTISONE 25 MG RECTAL SUPP PR PRN (16:26)
[2021-11-08] MEDS ORDERED: LANOLIN/ZINC/DIMETHICONE (LANSINOH) 7 GM TP PRN (16:26)
[2021-11-08] MEDS ORDERED: MORPHINE 2 MG/1 ML INJ IV PRN (16:26)
[2021-11-08] MEDS ORDERED: MORPHINE 4 MG/1 ML INJ IV PRN (16:26)
[2021-11-08] MEDS ORDERED: IBUPROFEN 800 MG TAB PO PRN (16:26)
[2021-11-08] MEDS ORDERED: WITCH HAZEL/ GLYCERIN PAD TP PRN (16:26)
[2021-11-08] MEDS ORDERED: ONDANSETRON 4 MG/2 ML INJ IV PRN (16:26)
[2021-11-08] MEDS ORDERED: NALOXONE 0.4 MG/1 ML INJ IV PRN ×2 (16:26→16:30)
[2021-11-08] MEDS ORDERED: HYDROcodone/ACETAMINOPHEN 5-325 MG TAB PO PRN (16:26)
[2021-11-08] MEDS ORDERED: MAGNESIUM HYDROXIDE (MOM) ORAL LIQD UDC PO PRN (16:26)
[2021-11-08] MEDS ORDERED: IBUPROFEN 600 MG TAB PO PRN (16:26)
--- NOTE | 2021-11-08 16:26 | XRay Report ---
ABDOMEN 1 VIEW INDICATION / CLINICAL INFORMATION: surgery verification of all instruments. Status post . COMPARISON: None available. FINDINGS: TUBES / LINES: None. BOWEL GAS PATTERN: No significant abnormality. FREE AIR / EXTRALUMINAL GAS: None seen. ADDITIONAL FINDINGS: No retained surgical instruments are identified. Nonspecific wire-like structure s are seen along the midline of the lower abdomen. IMPRESSION: 1. Nonspecific structures along the midline of the lower abdomen could be external to the patient. Pl ease correlate with the clinical findings. 2. Otherwise, no radiographic evidence of retained surgical instruments/other surgical material or ot her acute findings. Signer Name: Jorge Gale MD Signed: 11/08/2021 4:22 PM Workstation Name: [id number]
--- NOTE | 2021-11-08 16:32 | Procedure Note ---
OB Delivery Note - Delivery Date of Delivery: 11/08/21 Surgeon: CADENCE LEDEZMA Estimated blood loss: other (2666gms) - Section Preop diagnosis: other malpresentation (Face presentation,), other Postop diagnosis: same (Lower uterine segment atony with hemorrhage, acute blood loss hypovolemia requiring lifesaving hysterectomy with bilateral salpingo-oophorectomy) section procedure: other (Supracervical hysterectomy with bilateral salpingo-oophorectomy) Disposition: ICU Complications: intra-op hemorrhage, other (Lower uterine segment atony with severe intraoperative hemorrhage, suspected hemodilutional coagulopathy) Narrative: PREOPERATIVE DIAGNOSES: 1. Intrauterine , term gestation 2. Face presentation 3. Uterine atony. POSTOPERATIVE DIAGNOSES: 1. Intrauterine ,term gestation, face presentation 2. Delivered 3. Uterine atony with severe intraoperative hemorrhage into the broad ligament bilaterally 4. Suspected intraoperative hemodilutional coagulopathy OPERATIONS PERFORMED: 1. Primary low transverse section. 2. Supracervical abdominal hysterectomy with bilateral salpingo-oophorectomy SURGEON: Dr Cadence Ledezma ANESTHESIA: Epidural and general. ESTIMATED BLOOD LOSS: 2666mL. IV FLUIDS: mL crystalloid. URINE OUTPUT: 600mL, clear COUNTS: Correctx2 INDICATIONS FOR OPERATION: The patient is a 36-year-old at term who presented with spontaneous onset of labor and. Face presentation. Given suspected malpresentation patient was counseled about primary delivery. Indications, risks, and benefits were discussed with the patient and her partner. These risks include, but are not limited to bleeding, infection, damage to abdominal or pelvic organs or possible hemorrhage requiring transfusion and hysterectomy. Consent was obtained. OPERATIVE FINDINGS: Viable male infant weighing 3800g with score of 9 at one minute and 9 at five minutes. Uterus was atonic. Tubes and ovaries appeared normal. Extensive hemorrhage into the broad ligament bilaterally. DESCRIPTION OF OPERATION: After induction of epidural anesthesia, the patient was placed in the supine position with left lateral uterine displacement. The patient was prepped and draped in the usual sterile fashion. A Pfannenstiel skin incision was made with a scalpel and extended laterally sharply to the fascia, which was incised in the midline.The fascial incision was extended bilaterally. The fascia was bluntly and sharply dissected from the underlying rectus muscles. The recti were bluntly divided. The peritoneum was tented upward and entered sharply. The incision was extended superiorly and inferiorly. The vesicouterine peritoneum was tented upward and entered sharply. Then, the incision was extended bilaterally. A bladder flap was created by blunt dissection and protected behind the bladder blade. A low transverse uterine incision was made with a scalpel and extended bilaterally bluntly. The vertex was elevated to the level of the incision, where it was delivered with the aid of fundal pressure. The nose and mouth was bulb suctioned. The remainder of the infant was delivered atraumatically. The cord was doubly clamped and cut. The infant was handed to the awaiting nursery staff. The uterus was exteriorized and wrapped with a moist sponge. A dry sponge was used to curette the endometrial cavity. The uterus was vigorously massaged, as it was noted to be atonic. Methergine 0.2mg IMx2 doses, given to control atony with no success. The uterine incision was closed in two layers using 0 chromic suture in a running locked fashion with second layer in an imbricating fashion. Additional [id number] suture was used as needed for hemostasis. Uterine massage was continued with no response. In fact, the uterus was noted to be boggier and more atonic and was enlarging in size, most notably in the lower uterine segment. Brisk bleeding was noted bilaterally into the broad ligament. At this point total EBL was 1500ml. Patient was hemodynamically stable, howevere with brisk bleeding into the broad ligament bilaterlaly and persistent refractory uterine atony I made the decision for hysterectomy [facility]. The left round ligament was grasped, doubly clamped, cut, and doubly ligated. Note that throughout the hysterectomy, 0 Vicryl sutures were used and all pedicles were doubly ligated. The right round ligament was similarly clamped, cut, and ligated. The left infundibulopelvic ligament was then doubly clamped, cut, and doubly ligated. Additional clamps were placed down the mesosalpinx to the level of the uterine vessels. A similar procedure was performed on the right and the abuse of pelvic ligament and along the right mesosalpinx and broad ligament, to the level of the uterine vessels. The left uterine artery was then clamped, cut, and doubly ligated. A similar procedure was performed on the right uterine artery. Decision was made at this point to perform a supracervical hysterectomy. Large Edith clamps are placed across the right and left sides of the cervix, meeting at the midpoint. A scissors was used to excise the uterus, which was passed off the operative field. Interrupted [id number] sutures of 0 Vicryl were used to close the cervix. Once the cervical closure was hemostatic, the remaining pedicles were re- examined. The pelvis was irrigated. Hemostasis of all pedicles and the cervical closure was reconfirmed. Surgicel was placed over the cervical stump to serve as an adhesion barrier. The bladder was backfilled with 60 cc of sterile milk with no intraoperative spill. The integrity of the bladder was confirmed. The peritoneum was then closed with 3-0 Vicryl in the usual fashion. The rectus muscles approximated with 3-0 Vicryl. The fascia was closed in a running fashion with 0 Vicryl. Subcuticular structures were closed with 3-0 Vicryl in a running fashion. The skin was closed with Monocryl. A pressure dressing applied. the patient did receive 2 grams of Ancef preoperatively and two units PRBC's. She will recover in CCU. Dr Gatica consulted intraoperatively. The completion of the surgery radiology was consulted for intraoperative films given lack of appropriate instrument counts at conversion. Inspection of the film revealed no retained lap sponges, needles or instruments. DISPOSITION: The patient returned to the ICU extubated and in stable condition. Her partner was notified of the indication for the procedure, her stable condition and the plan of care fo recovery. All sponge, needle and instrument counts correctx2 EBL 2666 ml. Miguel A Ledezma MD
[2021-11-08] MEDS ORDERED: HYDROmorphone/NS 6 MG/30 ML PCA INJ IV SCH (17:00)
[2021-11-08 20:51] LABS: Hematocrit 34.3 % (30.3-42.9); Hemoglobin 11.1 gm/dl (10.1-14.3)
[2021-11-09] MEDS ORDERED: HYDROmorphone 1 MG/1 ML INJ IV PRN (03:16)
[2021-11-09] MEDS ORDERED: HYDROmorphone 1 MG/1 ML INJ ONE (03:23)
[2021-11-09] MEDS ORDERED: KETOROLAC 30 MG/1 ML INJ IV PRN ×3 (03:38→13:41)
[2021-11-09 04:46] LABS: Hematocrit 25.8 % (30.3-42.9); Hemoglobin 8.5 gm/dl (10.1-14.3)
[2021-11-09 05:03] LABS: Blood Urea Nitrogen 4 mg/dL (7-17)
[2021-11-09] MEDS ORDERED: SODIUM CHLORIDE 0.9% 500 ML 500 ML IV NR (08:10)
--- NOTE | 2021-11-09 09:16 | Post Anesthesia Evaluation ---
- Post Anesthesia Evaluation Patient Participated: Yes Airway Patent: Yes Stable Respiratory Function: Yes Nausea/Vomiting: No Temp > 96.8F: Yes Pain Manageable: Yes Adequeate Hydration: Yes Anesthesia Complications: No Block Receding Appropriately: Yes Patient on Ventilator: No
--- NOTE | 2021-11-09 09:55 | Progress Note ---
Assessment and Plan Status post emergent supracervical hysterectomy with bilateral salpingo-oophorectomy 1: Patient is hemodynamically stable with occasional hypotension: Patient has not had a ruby which would be expected within 72 hours of her procedure. I expect her hemoglobin to drop again as she reaches equilibrium and plan to transfuse 2 more units of PRBCs. 2: Adequate urine output: No hematuria, urine in bag is concentrated we will give 1 L bolus of normal saline: Continue Steinberg until tomorrow morning 3: Pain control: Transition to p.o. and IV medications. 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 medication At bedside she complains of pain PE: Vitals stable Abdomen soft nontender with no rebound or guarding Incision is dressed without bleeding Extremities: Negative Homans' sign bilaterally Labs: Hemoglobin consistently 8-9 postoperatively Miguel A Rodriguez MD Objective - Vital Signs Latest vital signs: Vital Signs Temp Pulse Pulse Pulse Resp BP Pulse Ox 11/09/21 07:26 98.1 F 11/09/21 06:31 84 12 92/55 100 11/09/21 06:21 79 18 92/55 100 11/09/21 06:11 87 18 92/55 98 11/09/21 06:01 90 17 92/55 99 11/09/21 05:51 81 16 92/55 97 11/09/21 05:41 82 16 92/55 97 11/09/21 05:31 79 16 92/55 11/09/21 05:21 81 17 92/55 98 11/09/21 05:11 77 16 92/55 98 11/09/21 05:01 79 18 92/55 98 11/09/21 04:51 94 H 15 92/55 98 11/09/21 04:41 79 16 92/55 99 03/24/22 04:31 81 15 92/55 99 11/09/21 04:21 84 17 92/55 97 11/09/21 04:11 85 18 91/52 97 11/09/21 04:00 98.0 F 79 20 91/52 98 11/09/21 03:51 84 20 89/57 98 11/09/21 03:43 88 88 100 11/09/21 03:41 85 20 88/55 98 11/09/21 03:30 79 22 88/55 99 11/09/21 03:21 80 22 95/53 99 11/09/21 03:11 79 17 94/61 100 11/09/21 03:00 76 17 86/56 100 11/09/21 02:51 79 20 105/53 99 11/09/21 02:41 84 15 90/54 100 11/09/21 02:30 90 21 90/54 86 11/09/21 02:21 87 18 103/59 99 11/09/21 02:11 77 18 95/63 100 11/09/21 02:00 82 17 95/63 11/09/21 01:51 85 18 99/57 100 11/09/21 01:41 81 20 92/61 98 11/09/21 01:30 89 15 92/61 11/09/21 01:21 89 18 99/63 99 11/09/21 01:11 84 18 98/58 99 11/09/21 01:00 86 18 98/58 11/09/21 00:51 81 17 93/62 99 11/09/21 00:41 80 19 99/61 100 11/09/21 00:30 80 19 89/59 11/09/21 00:21 82 15 105/65 100 11/09/21 00:11 77 11 L 95/50 100 11/09/21 00:10 98.8 F 11/09/21 00:01 84 13 95/50 100 11/08/21 23:51 87 13 100/61 100 11/08/21 23:43 89 88 88 18 108/63 100 11/08/21 23:41 93 H 15 108/63 99 11/08/21 23:30 79 10 L 108/63 11/08/21 23:21 77 16 100/54 100 11/08/21 23:11 80 18 103/66 100 11/08/21 23:00 83 18 103/66 11/08/21 22:51 73 18 107/71 100 11/08/21 22:41 78 18 123/104 100 11/08/21 22:31 85 15 102/67 98 11/08/21 22:21 83 19 102/67 99 11/08/21 22:11 79 15 104/73 97 11/08/21 22:01 77 10 L 104/73 99 11/08/21 21:51 76 16 98/56 100 11/08/21 21:41 73 12 75/46 99 11/08/21 21:31 83 14 104/61 99 11/08/21 21:21 73 17 104/61 100 11/08/21 21:11 92 H 16 96/55 100 11/08/21 21:01 107 H 15 99/69 11/08/21 20:51 79 18 99/69 100 11/08/21 20:41 83 15 107/61 100 11/08/21 20:30 77 13 107/61 100 11/08/21 20:21 83 9 L 92/65 100 11/08/21 20:11 94 H 22 93/58 100 11/08/21 20:01 100 H 15 93/58 100 11/08/21 20:00 98.3 F 11/08/21 19:51 89 19 85/52 100 11/08/21 19:41 80 14 84/50 98 11/08/21 19:30 86 10 L 84/50 99 11/08/21 19:21 94 H 10 L 87/44 98 11/08/21 19:11 91 H 14 92/30 96 11/08/21 19:00 106 H 13 96/59 99 11/08/21 18:50 79 14 96/59 11/08/21 18:47 69 14 11/08/21 17:40 83 12 111/70 97 11/08/21 17:25 64 13 101/53 100 11/08/21 17:10 67 12 109/60 100 11/08/21 16:55 64 12 104/53 100 11/08/21 16:50 59 L 12 107/55 100 11/08/21 16:45 75 20 112/63 100 11/08/21 16:40 97.5 F L 73 16 97/35 100 11/08/21 13:30 88 97 11/08/21 13:25 83 96 03 13:20 80 97 03 13:15 88 96 03 13:14 76 100/67 03 13:10 70 98 03 13:05 74 99 11/08/21 13:00 73 96 11/08/21 12:56 79 93 11/08/21 12:55 70 96 11/08/21 12:50 76 97 11/08/21 12:49 78 94 11/08/21 12:45 78 99 11/08/21 12:40 80 93 11/08/21 12:35 79 115/73 99 11/08/21 12:30 79 98 11/08/21 12:25 77 100 11/08/21 12:20 82 99 11/08/21 12:15 87 94 11/08/21 12:10 77 98 11/08/21 12:08 74 92 11/08/21 12:05 83 98 11/08/21 12:04 74 102/56 11/08/21 12:00 85 98 11/08/21 11:55 87 97 11/08/21 11:50 103 H 99 11/08/21 11:49 86 90/51 11/08/21 11:45 89 99 11/08/21 11:40 92 H 99 11/08/21 11:35 90 93/55 97 11/08/21 11:30 86 99 11/08/21 11:25 82 97 11/08/21 11:21 81 107/63 11/08/21 11:20 88 100 11/08/21 11:15 83 100 11/08/21 11:10 77 100 11/08/21 11:05 97 H 100 11/08/21 11:04 78 122/70 03 11:00 83 100 03 10:55 93 H 99 11/08/21 10:50 87 100 0322 10:49 90 123/77 0322 10:45 84 100 0322 10:44 84 93 0322 10:40 94 H 99 22 10:35 72 124/78 100 0322 10:30 88 90 22 10:25 76 100 0322 10:20 80 125/80 100 11/08/21 10:15 81 100 11/08/21 10:10 79 100 11/08/21 10:05 75 114/61 100 11/08/21 10:00 88 100 11/08/21 09:56 82 84 Intake and Output 11/08/21 11/09/21 11/09/21 23:59 07:59 15:59 Intake Total 600 Output Total 1200 350 Balance -600 -350 Intake: IV 600 Output: Urine 1200 350 Indwelling Catheter 350 Other: Total, Output Amount 350 Voiding Method Indwelling Catheter Indwelling Catheter Weight 96.5 kg 96.16 kg Patient Weight 11/09/21 23:59 Weight 96.16 kg - Exam Breasts: Present: normal Cardiovascular: Present: Regular rate Lungs: Present: Clear to auscultation, Normal air movement Abdomen: Present: normal appearance, tenderness Uterus: Present: other (Absent) Extremities: Present: normal Deep Tendon Reflex Grade: Normal +2 Incision: Present: normal, dry, intact, dressed - Labs Labs: Abnormal lab results 11/07/21 11/08/21 11/08/21 Range/Units 23:27 15:12 15:12 WBC 14.1 H (4.5-11.0) K/mm3 Hgb 9.8 L (10.1-14.3) gm/dl Hct (30.3-42.9) % MCH 26 L (28-32) pg RDW 16.7 H (13.2-15.2) % [place] % (Auto) 9.2 H (0.0-7.3) % [place] # (Auto) 1.3 H (0.0-0.8) K/mm3 Seg Neutrophils % 71.7 H (40.0-70.0) % Seg Neutrophils # 10.1 H (1.8-7.7) K/mm3 Chloride 110.4 H (98-107) mmol/L Carbon Dioxide 17 L (22-30) mmol/L BUN 4 L (7-17) mg/dL Creatinine 0.4 L (0.6-1.2) mg/dL Glucose 102 H (65-100) mg/dL Alkaline Phosphatase 165 H (35-129) units/L Total Protein 5.2 L (6.3-8.2) g/dL Albumin 2.7 L (3.9-5) g/dL Crossmatch See Detail 11/09/21 11/09/21 Range/Units 04:27 04:27 WBC (4.5-11.0) K/mm3 Hgb 8.5 L (10.1-14.3) gm/dl Hct 25.8 L D (30.3-42.9) % MCH (28-32) pg RDW (13.2-15.2) % [place] % (Auto) (0.0-7.3) % [place] # (Auto) (0.0-0.8) K/mm3 Seg Neutrophils % (40.0-70.0) % Seg Neutrophils # (1.8-7.7) K/mm3 Chloride (98-107) mmol/L Carbon Dioxide (22-30) mmol/L BUN 4 L (7-17) mg/dL Creatinine 0.4 L (0.6-1.2) mg/dL Glucose (65-100) mg/dL Alkaline Phosphatase (35-129) units/L Total Protein (6.3-8.2) g/dL Albumin (3.9-5) g/dL Crossmatch
[2021-11-09 12:40] LABS: Hematocrit 28.7 % (30.3-42.9); Hemoglobin 9.3 gm/dl (10.1-14.3)
[2021-11-09] MEDS: HYDROmorphone 1 MG/1 ML INJ IV PRN ×2 (13:10→16:00)
[2021-11-09] MEDS ORDERED: LACTATED RINGERS 1,000 ML IV ONE (13:13)
--- NOTE | 2021-11-09 13:24 | Event Note ---
Date: 11/09/21 Patient admitted overnight for observation. No overt signs of bleeding but did drop H/H. STat repeat was slightly higher and OB is transfusing. Stable from a critical care standpoint for transfer. Blood transfusion in mother baby. If response to blood not appropriate, may need CT of abdomen pelvis vs other OB related imaging.
[2021-11-09] MEDS ORDERED: MORPHINE 4 MG/1 ML INJ IV PRN (13:41)
[2021-11-09] MEDS ORDERED: PROMETHAZINE 25 MG RECT SUPP PR PRN (13:41)
[2021-11-09] MEDS ORDERED: ACETAMINOPHEN 650 MG RECT SUPP PR PRN (13:41)
[2021-11-09] MEDS ORDERED: WITCH HAZEL/ GLYCERIN PAD TP PRN (13:41)
[2021-11-09] MEDS ORDERED: IBUPROFEN 600 MG TAB PO PRN (13:41)
[2021-11-09] MEDS ORDERED: HYDROcodone/ACETAMINOPHEN 5-325 MG TAB PO PRN (13:41)
[2021-11-09] MEDS ORDERED: NALOXONE 0.4 MG/1 ML INJ IV PRN (13:41)
[2021-11-09] MEDS ORDERED: LANOLIN/ZINC/DIMETHICONE (LANSINOH) 7 GM TP PRN (13:41)
[2021-11-09] MEDS ORDERED: MORPHINE 2 MG/1 ML INJ IV PRN (13:41)
[2021-11-09] MEDS ORDERED: oxyCODONE /ACETAMINOPHEN 5-325MG TAB PO PRN (13:41)
[2021-11-09] MEDS ORDERED: HYDROCORTISONE 25 MG RECTAL SUPP PR PRN (13:41)
[2021-11-09] MEDS ORDERED: ONDANSETRON 4 MG/2 ML INJ IV PRN (13:41)
[2021-11-09] MEDS ORDERED: SENNOSIDES 8.6 MG TAB PO PRN (13:41)
[2021-11-09] MEDS ORDERED: OXYTOCIN DRIP 30 UNITS/500 ML BAG IV SCH (14:00)
[2021-11-09] MEDS: IBUPROFEN 800 MG TAB PO PRN (22:17)
[2021-11-10] MEDS: oxyCODONE /ACETAMINOPHEN 5-325MG TAB PO PRN ×5 (00:49→20:15)
[2021-11-10 02:04] LABS: Hemoglobin 8.2 gm/dl (10.1-14.3)
[2021-11-10] MEDS: IBUPROFEN 800 MG TAB PO PRN ×2 (08:36→14:16)
[2021-11-10 10:14] LABS: Alanine Aminotransferase 10 units/L (7-56); Albumin 2.4 g/dL (3.9-5); Blood Urea Nitrogen 5 mg/dL (7-17); Hemolysis Index 0
[2021-11-10 10:17] LABS: Basophils % (Auto) 0.2 % (0.0-1.8); Eosinophils % (Auto) 0.2 % (0.0-4.3); Hematocrit 24.7 % (30.3-42.9); Lymphocytes # (Auto) 1.5 K/mm3 (1.2-5.4); Lymphocytes % (Auto) 16.1 % (13.4-35.0); Mean Corpuscular HGB Conc 33 % (30-34); Mean Corpuscular Volume 84 fl (79-97); Monocytes % (Auto) 10.8 % (0.0-7.3); Platelet Count 204 K/mm3 (140-440); Red Blood Count 2.95 M/mm3 (3.65-5.03); Red Cell Distribution Width 17.3 % (13.2-15.2)
[2021-11-10 10:26] LABS: BUN/Creatinine Ratio 17
[2021-11-10] MEDS ORDERED: FERROUS SULFATE 325 MG TAB PO SCH (11:00)
--- NOTE | 2021-11-10 11:06 | Progress Note ---
Assessment and Plan A: /postop day 2 S/P primary low transverse section followed by supracervical abdominal hysterectomy and BSO due to intraoperative hemorrhage. Anemia, S/P blood transfusion. P: Supplement with iron. Encouraged patient to ambulate. Continue routine /postop care. Subjective - Subjective Date of service: 11/10/21 Principal diagnosis: /postop day 2 Patient reports: appetite normal, voiding normally, pain well controlled, flatus, ambulating normally, no dizzy ambulation, no bowel movement, no nauseated : doing well Objective - Vital Signs Latest vital signs: Vital Signs Temp Pulse Resp BP BP Pulse Ox Pulse Ox 11/10/21 10:25 98 11/10/21 07:35 98.7 F 68 103/64 11/10/21 07:30 98 11/10/21 00:40 98.1 F 101 H 20 112/65 100 11/09/21 20:21 100 11/09/21 16:10 98.3 F 97 H 18 104/80 100 98 11/09/21 15:50 87 17 114/76 11/09/21 15:41 110 H 16 114/76 100 11/09/21 15:31 97 H 20 114/76 11/09/21 15:21 74 15 114/76 98 11/09/21 15:11 82 14 111/66 100 11/09/21 15:00 86 17 111/66 100 11/09/21 14:51 73 11 L 113/74 100 11/09/21 14:41 75 17 111/73 100 11/09/21 14:31 76 16 111/73 96 11/09/21 14:21 78 12 128/77 100 11/09/21 14:11 91 H 13 113/64 99 11/09/21 14:00 83 17 113/64 99 11/09/21 13:51 79 16 122/62 98 11/09/21 13:41 87 16 118/71 97 11/09/21 13:30 90 19 118/71 99 11/09/21 13:21 82 21 104/65 99 11/09/21 13:11 82 14 100/67 100 11/09/21 13:00 77 14 100/67 100 11/09/21 12:51 81 11 L 108/65 99 11/09/21 12:41 101 H 22 119/59 87 11/09/21 12:31 75 14 119/59 100 11/09/21 12:21 91 H 14 111/63 99 11/09/21 12:11 92 H 18 94/59 11/09/21 12:01 93 H 14 91/48 98 11/09/21 12:00 18 100 11/09/21 11:58 98.5 F 11/09/21 11:51 107 H 21 89/53 99 11/09/21 11:41 81 18 106/64 100 11/09/21 11:30 82 15 106/64 100 11/09/21 11:21 88 14 92/62 99 11/09/21 11:11 101 H 20 102/63 98 Intake and Output 11/09/21 11/10/21 11/10/21 23:59 07:59 15:59 Intake Total 240 120 Output Total 900 Balance 240 -780 Intake: Oral 240 120 Output: Urine 900 Indwelling Catheter 900 Other: Total, Intake Amount 120 120 Total, Output Amount 900 - Exam Cardiovascular: Present: Regular rate, No murmurs Lungs: Present: Clear to auscultation Abdomen: Present: normal appearance, soft, normal bowel sounds. Absent: distention, tenderness, guarding, rigidity Extremities: Absent: tenderness Incision: Present: dressed - Labs Labs: Abnormal lab results 11/07/21 11/09/21 11/10/21 Range/Units 23:27 12:12 01:42 RBC (3.65-5.03) M/mm3 Hgb 9.3 L 8.2 L (10.1-14.3) gm/dl Hct 28.7 L 25.0 L (30.3-42.9) % MCH (28-32) pg RDW (13.2-15.2) % [place] % (Auto) (0.0-7.3) % [place] # (Auto) (0.0-0.8) K/mm3 Seg Neutrophils % (40.0-70.0) % Chloride (98-107) mmol/L Carbon Dioxide (22-30) mmol/L BUN (7-17) mg/dL Creatinine (0.6-1.2) mg/dL Alkaline Phosphatase (35-129) units/L Total Protein (6.3-8.2) g/dL Albumin (3.9-5) g/dL Crossmatch See Detail 11/10/21 11/10/21 Range/Units 09:27 09:27 RBC 2.95 L (3.65-5.03) M/mm3 Hgb 8.0 L (10.1-14.3) gm/dl Hct 24.7 L (30.3-42.9) % MCH 27 L (28-32) pg RDW 17.3 H (13.2-15.2) % [place] % (Auto) 10.8 H (0.0-7.3) % [place] # (Auto) 1.0 H (0.0-0.8) K/mm3 Seg Neutrophils % 72.7 H (40.0-70.0) % Chloride 108.4 H (98-107) mmol/L Carbon Dioxide 21 L (22-30) mmol/L BUN 5 L (7-17) mg/dL Creatinine 0.3 L (0.6-1.2) mg/dL Alkaline Phosphatase 131 H (35-129) units/L Total Protein 5.0 L (6.3-8.2) g/dL Albumin 2.4 L (3.9-5) g/dL Crossmatch
[2021-11-10] MEDS: FERROUS SULFATE 325 MG TAB PO SCH (11:37)
[2021-11-10] MEDS: DOCUSATE SODIUM 100 MG CAP PO SCH (11:40)
[2021-11-10] MEDS: ASCORBIC ACID 500 MG TAB PO SCH (11:40)
[2021-11-10] MEDS: SIMETHICONE 80 MG CHEW TAB PO PRN (20:20)
--- NOTE | 2021-11-10 22:25 | Event Note ---
Date: 11/10/21 Patient reports that about 1 hour ago, she had a sharp abdominal pain and had to lie down. Patient reports abdomen continues to hurt. States she has passed gas today and she denies nausea. Abdomen is firm and tender to palpation. Hypoactive bowel sounds present. CT of abdomen and pelvis ordered as advised by Dr. Cowan. Called and informed Dr. Cowan of findings of abdominal exam.
[2021-11-10 22:47] LABS: Basophils % (Auto) 0.2 % (0.0-1.8); Eosinophils # (Auto) 0.1 K/mm3 (0.0-0.4); Eosinophils % (Auto) 0.7 % (0.0-4.3); Hematocrit 23.1 % (30.3-42.9); Hemoglobin 7.5 gm/dl (10.1-14.3); Lymphocytes # (Auto) 1.9 K/mm3 (1.2-5.4); Lymphocytes % (Auto) 22.6 % (13.4-35.0); Mean Corpuscular HGB Conc 32 % (30-34); Mean Corpuscular Volume 83 fl (79-97); Monocytes # (Auto) 0.9 K/mm3 (0.0-0.8); Platelet Count 208 K/mm3 (140-440); Red Blood Count 2.77 M/mm3 (3.65-5.03)
[2021-11-10 23:08] LABS: Alanine Aminotransferase 11 units/L (7-56); Albumin 2.4 g/dL (3.9-5); Blood Urea Nitrogen 5 mg/dL (7-17); Calcium 8.5 mg/dL (8.4-10.2); Hemolysis Index 5
[2021-11-10 23:36] LABS: BUN/Creatinine Ratio 13
[2021-11-11] MEDS: oxyCODONE /ACETAMINOPHEN 5-325MG TAB PO PRN ×6 (00:38→20:53)
[2021-11-11] MEDS: DOCUSATE SODIUM 100 MG CAP PO SCH ×3 (00:40→21:27)
[2021-11-11] MEDS: ASCORBIC ACID 500 MG TAB PO SCH ×3 (00:40→21:28)
[2021-11-11] MEDS: FERROUS SULFATE 325 MG TAB PO SCH ×3 (00:40→21:28)
[2021-11-11] MEDS: IBUPROFEN 800 MG TAB PO PRN ×2 (03:25→23:15)
[2021-11-11] MEDS: SIMETHICONE 80 MG CHEW TAB PO PRN ×2 (03:25→16:30)
[2021-11-11] MEDS: SODIUM CHLORIDE 0.9% 500 ML 500 ML IV ONE ×2 (03:38→08:13)
[2021-11-11] MEDS ORDERED: SODIUM CHLORIDE 0.9% 500 ML 500 ML IV SCH (04:00)
[2021-11-11] MEDS: MAGNESIUM HYDROXIDE (MOM) ORAL LIQD UDC PO PRN ×2 (04:40→21:28)
--- NOTE | 2021-11-11 07:50 | Progress Note ---
Assessment and Plan POD#3 C/hyst, BSO and now hematoma with anemia; S/P 3units PRBC since surgery, last one overnight 1. CT report official obtained after charge nurse went to radiology for same and I read it showing pt had a uterus without obvious abnormality of endometrial cavity. I immediately called Dr. Neo Ziegler and explained this pt had C/hyst and BSO; Verbal addendum obtained from him while talking on the phone states there is a right superior cuff hematoma 2.4cm, Left adnexal hematoma 1.8cm , right ovarian bed hematoma 2.6cm and Uterine bed hematoma 7.8x6.5cm without extravasation of any contrast. Findings revealed to patient and I will give additional unit of PRBC and revaluate later 2. Will give antibiotics only if febrile 3. Will consider drainage from IR team when they are available on Saturday 4. Abdominal binder placed and pt asked to wear same 5. Continue stool softener and iron supplement 6. IV previously removed due leaking per nurse, replaced by me to right forearm Plan of care discussed in detail and all questions encouraged and answered Subjective Date of service: 11/11/21 Principal diagnosis: POD#3 C/hyst, BSO with hematoma without extravasation of contrast Interval history: Pt had severe pain overnight that improved with simethecone, pain med and passing gas. Pt denies dizziness and desires to take a shower. Denies N/V/F/C. Vag bleed remains scant without clots per pt report. CT scan done overnight and verbal report per nurse to me states it was normal, however hgb decreased to 7.5 therefore I ordered transfusion of the remaining 2units of PRBC until official report available. Pt voiding without difficulty and pain controlled with oral meds. Pt's last BM was 5days ago. Pt denies any hotflash or sweating. Breast milk came in this morning and pt plans to breast feed Objective - Constitutional Vitals: Vital Signs - 12hr 11/10/21 11/10/21 11/11/21 20:15 21:15 00:46 Temperature 98.8 F 98.1 F Pulse Rate 98 H 96 H Respiratory 18 18 Rate Blood Pressure 104/57 110/69 O2 Sat by Pulse 99 99 Oximetry O2 Sat by Pulse 99 Oximetry [ Bilateral Throughout] 11/11/21 11/11/21 11/11/21 03:47 04:02 04:32 Temperature 97.9 F 97.9 F 97.7 F Pulse Rate 96 H 95 H 98 H Respiratory 18 18 18 Rate Blood Pressure 109/60 111/55 105/63 O2 Sat by Pulse 98 98 99 Oximetry O2 Sat by Pulse Oximetry [ Bilateral Throughout] 11/11/21 11/11/21 11/11/21 05:02 05:32 06:02 Temperature 97.6 F 97.6 F 97.6 F Pulse Rate 93 H 89 98 H Respiratory 18 18 18 Rate Blood Pressure 96/54 98/55 114/64 O2 Sat by Pulse 98 99 99 Oximetry O2 Sat by Pulse Oximetry [ Bilateral Throughout] General appearance: Present: no acute distress - Neck Neck: normal ROM - Respiratory Respiratory effort: normal - Cardiovascular Rhythm: regular Extremities: No edema - Gastrointestinal General gastrointestinal: Present: soft, non-tender (Abdomen large, smaller than yesterday with some fullness arount the umbilicus. ), other (Incision with steristrips intact, old blood stain to right side of incision without active drainage) - Genitourinary Female genitourinary: other (Peripad with scant vag bleed) - Integumentary Integumentary: warm, dry - Neurologic Neurologic: moves all extremities - Psychiatric Psychiatric: cooperative - Labs CBC & Chem 7: 11/10/21 22:31 11/10/21 22:31 Labs: Abnormal lab results 11/10/21 11/10/21 11/10/21 Range/Units 09:27 09:27 22:31 RBC 2.95 L 2.77 L (3.65-5.03) M/mm3 Hgb 8.0 L 7.5 L (10.1-14.3) gm/dl Hct 24.7 L 23.1 L (30.3-42.9) % MCH 27 L 27 L (28-32) pg RDW 17.3 H 17.0 H (13.2-15.2) % [place] % (Auto) 10.8 H 10.0 H (0.0-7.3) % [place] # (Auto) 1.0 H 0.9 H (0.0-0.8) K/mm3 Seg Neutrophils % 72.7 H (40.0-70.0) % Potassium (3.6-5.0) mmol/L Chloride 108.4 H (98-107) mmol/L Carbon Dioxide 21 L (22-30) mmol/L BUN 5 L (7-17) mg/dL Creatinine 0.3 L (0.6-1.2) mg/dL Glucose (65-100) mg/dL Alkaline Phosphatase 131 H (35-129) units/L Total Protein 5.0 L (6.3-8.2) g/dL Albumin 2.4 L (3.9-5) g/dL Crossmatch 11/10/21 11/11/21 Range/Units 22:31 01:51 RBC (3.65-5.03) M/mm3 Hgb (10.1-14.3) gm/dl Hct (30.3-42.9) % MCH (28-32) pg RDW (13.2-15.2) % [place] % (Auto) (0.0-7.3) % [place] # (Auto) (0.0-0.8) K/mm3 Seg Neutrophils % (40.0-70.0) % Potassium 3.4 L (3.6-5.0) mmol/L Chloride 108.4 H (98-107) mmol/L Carbon Dioxide 21 L (22-30) mmol/L BUN 5 L (7-17) mg/dL Creatinine 0.4 L (0.6-1.2) mg/dL Glucose 114 H (65-100) mg/dL Alkaline Phosphatase (35-129) units/L Total Protein 5.0 L (6.3-8.2) g/dL Albumin 2.4 L (3.9-5) g/dL Crossmatch See Detail Medications & Allergies - Medications Allergies/Adverse Reactions: Allergies nalbuphine [From Nubain] Allergy (Verified 11/09/21 13:48) Itching Home Medications: Home Medications Medication Instructions Recorded Confirmed Last Taken Type Ibuprofen [Motrin] 600 mg PO Q8H PRN #60 tablet 11/08/21 Unknown Rx oxyCODONE /ACETAMINOPHEN [Percocet 1 tab PO Q6HR PRN #20 tablet 11/08/21 Unknown Rx 5/325] Active Medications: Generic Name Dose Route Start Last Admin Trade Name Freq PRN Reason Stop Dose Admin Acetaminophen 650 mg 11/09/21 13:41 Acetaminophen 650 Mg Rect Supp OR Q4H PRN Fever >100.5/CAR[place] Ascorbic Acid 500 mg 11/10/21 12:00 11/11/21 00:40 Ascorbic Acid 500 Mg Tab PO 500 mg BID KRYS Administration Docusate Sodium 100 mg 11/10/21 12:00 11/11/21 00:40 Docusate Sodium 100 Mg Cap PO 100 mg BID KRYS Administration Ferrous Sulfate 325 mg 11/10/21 12:00 11/11/21 00:40 Ferrous Sulfate 325 Mg Tab PO 325 mg BID KRYS Administration Hydrocortisone Acetate 25 mg 11/09/21 13:41 Hydrocortisone 25 Mg Rectal Supp OR BID PRN Hemorrhoids Hydromorphone HCl 1 mg 11/09/21 12:48 11/09/21 16:00 Hydromorphone 1 Mg/1 Ml Inj IV 1 mg Q3H PRN Administration Pain , Severe (7-10) Oxytocin/Sodium Chloride 30 units in 500 mls @ 40 mls/hr 11/09/21 14:00 Pitocin/Ns 30 Unit/500ml IV TITR KRYS Protocol Sodium Chloride 500 mls @ 50 mls/hr 11/11/21 04:00 11/11/21 03:40 Nacl 0.9% 500 Ml IV 50 mls/hr DIRECT KRYS Administration Ibuprofen 600 mg 11/09/21 13:41 Ibuprofen 600 Mg Tab PO Q6H PRN Pain, Mild (1-3) Ibuprofen 800 mg 11/09/21 13:41 11/11/21 03:25 Ibuprofen 800 Mg Tab PO 800 mg Q6H PRN Administration Pain, Moderate (4-6) Magnesium Hydroxide 30 ml 11/09/21 13:41 11/11/21 04:40 Magnesium Hydroxide (Mom) Oral Liqd Udc PO 30 ml QHS PRN Administration Constip Unrelieved By Senna Morphine Sulfate 2 mg 11/09/21 13:41 Morphine 2 Mg/1 Ml Inj IV Q4H PRN Pain, Moderate (4-6) Morphine Sulfate 4 mg 11/09/21 13:41 Morphine 4 Mg/1 Ml Inj IV Q4H PRN Pain , Severe (7-10) Multi-Ingredient Ointment 1 applic 11/09/21 13:41 Lanolin/Zinc/Dimethicone (Lansinoh) 7 Gm TP PRN PRN dryness/cracking Naloxone HCl 0.1 mg 11/08/21 16:30 Naloxone 0.4 Mg/1 Ml Inj IV Q2MIN PRN Res Rate </= 8 or 02 SAT < 92% Naloxone HCl 0.1 mg 11/09/21 13:41 Naloxone 0.4 Mg/1 Ml Inj IV Q2MIN PRN Res Rate </= 8 or 02 SAT < 92% Ondansetron HCl 4 mg 11/09/21 13:41 Ondansetron 4 Mg/2 Ml Inj IV Q8H PRN Nausea And Vomiting Oxycodone/Acetaminophen 2 tab 11/09/21 21:58 11/11/21 04:40 Oxycodone /Acetaminophen 5-325mg Tab PO 2 tab Q4H PRN Administration Pain, Moderate (4-6) Promethazine HCl 25 mg 11/09/21 13:41 Promethazine 25 Mg Rect Supp OR Q6H PRN N/V IF NPO AND NO IV ACCESS Senna 17.2 mg 11/09/21 13:41 11/09/21 20:25 Sennosides 8.6 Mg Tab PO 17.2 mg QHS PRN Administration Constipation Simethicone 80 mg 11/08/21 16:26 11/11/21 03:25 Simethicone 80 Mg Chew Tab PO 80 mg Q6H PRN Administration Gas pain Sodium Chloride 10 ml 11/08/21 17:00 Sodium Chloride 0.9% 10 Ml Flush Syringe IV 11/19/21 23:59 PRN NR Sodium Chloride 10 ml 11/09/21 14:00 Sodium Chloride 0.9% 10 Ml Flush Syringe IV 11/20/21 23:59 PRN NR Witch Anne Marie/Glycerin 1 each 11/08/21 16:26 Witch Anne Marie/ Glycerin Pad TP PRN PRN Hemorrhoids/cleansing/soothing Witch Anne Marie/Glycerin 1 each 11/09/21 13:41 Witch Anne Marie/ Glycerin Pad TP PRN PRN Hemorrhoids/cleansing/soothing
[2021-11-11] MEDS ORDERED: ACETAMINOPHEN 325 MG TAB PO NR (07:53)
[2021-11-11] MEDS ORDERED: diphenhydrAMINE 50 MG CAP PO NR (08:00)
[2021-11-11] MEDS ORDERED: diphenhydrAMINE 25 MG CAP PO PRN (08:09)
--- NOTE | 2021-11-11 11:32 | Cat Scan Report ---
CT ABDOMEN AND PELVIS WITHOUT AND WITH CONTRAST INDICATION / CLINICAL INFORMATION: abdominal pain. Recent . TECHNIQUE: Axial CT images were obtained through the abdomen and pelvis before and after 100 cc Omnip aque [address] scans at this location are performed using CT dose reduction for ALARA by means of automated exposure control. COMPARISON: None available. FINDINGS: LOWER CHEST: Appearance of the breasts is compatible with . LIVER: No significant abnormality. GALLBLADDER: No significant abnormality. BILE DUCTS: No significant abnormality. SPLEEN: No significant abnormality. PANCREAS: No significant abnormality. ADRENALS: No significant abnormality. RIGHT KIDNEY / URETER: 2 mm nonobstructing stone mid right kidney. No additional urolithiasis is molly rly demonstrated. LEFT KIDNEY / URETER: No significant abnormality. STOMACH / DUODENUM / SMALL BOWEL: Stomach is moderately distended. COLON: A large fecal burden is noted throughout the ascending and transverse large bowel. No obvious abnormality of bowel within the pelvis is demonstrated. APPENDIX: Not clearly identified. PERITONEUM: Free air noted throughout the peritoneal cavity small in amount. This is thought to be re lated to recent . Additionally within the right lower pelvis along the superior margin of th e uterus, image #292, high attenuation material is present with additional high attenuation material within the left adnexa image 280, and right lower abdomen image #266 on noncontrast enhanced series. This is thought to reflect evidence of hemorrhage. No suggestive change following the administration of intravenous contrast. High attenuation material is present within the stomach, no other high atten uation material within bowel. LYMPH NODES: No significant adenopathy. AORTA / ARTERIES: No significant abnormality. IVC / VEINS: No significant abnormality. URINARY BLADDER: No significant abnormality. REPRODUCTIVE ORGANS: Small uterus no obvious abnormality of the endometrial cavity. ADDITIONAL ABDOMINAL/PELVIC FINDINGS: None. SKELETAL SYSTEM: No significant abnormality. IMPRESSION: 1. High attenuation material along the superior margin of the uterus, left adnexa, and right lower ab domen is thought to reflect evidence of hemorrhage, no active extravasation or increased amount is pr esent following administration of intravenous contrast. Repeat noncontrast enhanced study in 2 days i s recommended to assess stability and/or improvement if patient remains clinically stable. 2. Free air thought to reflect recent . 3. No specific abnormality of the bowel within the pelvis is demonstrated. IMPORTANT FINDING Time of Communication (SENIOR PHARMACY TECHNICIAN/CDT): 2304 hours Licensed Practitioner Receiving Report: MUKESH Azevedo Signer Name: Darin Ziegler II, MD Signed: 11/11/2021 12:05 AM Workstation Name: [id number]
[2021-11-11 17:58] LABS: Hematocrit 29.3 % (30.3-42.9); Hemoglobin 9.5 gm/dl (10.1-14.3)
--- NOTE | 2021-11-11 20:45 | Event Note ---
Date: 11/11/21 pt has received the additional 2units of blood and hgb up from 7.5 to 9.5; pt now complains after taking shower that her hips appear swollen. Will do expectant mgt for now. pt remains afebrile. Incision with steristrips C/D/I and pt not wearing a pad at this time
[2021-11-12] MEDS: oxyCODONE /ACETAMINOPHEN 5-325MG TAB PO PRN ×4 (00:59→20:28)
[2021-11-12] MEDS: IBUPROFEN 800 MG TAB PO PRN ×2 (08:57→18:34)
[2021-11-12] MEDS: ASCORBIC ACID 500 MG TAB PO SCH ×2 (08:57→21:36)
[2021-11-12] MEDS: FERROUS SULFATE 325 MG TAB PO SCH ×2 (08:57→21:36)
[2021-11-12] MEDS: DOCUSATE SODIUM 100 MG CAP PO SCH ×2 (08:57→21:36)
--- NOTE | 2021-11-12 12:58 | Progress Note ---
Assessment and Plan A: /postop day 4 S/P primary LTCS followed by supracervical hysterectomy and BSO due to intraoperative hemorrhage. Post op hematatoma. Anemia, S/P blood transfusion. Receiving oral iron supplementation. P: Management and disposition per Dr. Cowan. Encouraged patient to ambulate. Continue iron supplementation. Instructed patient re: dietary sources of iron also. Subjective - Subjective Date of service: 11/12/21 Principal diagnosis: POD#4 C/hyst, BSO with hematoma without extravasation of contrast Interval history: Passing gas. Ambulating well. Voiding without difficulty. Patient reports: appetite normal, voiding normally, flatus, ambulating normally, no dizzy ambulation, no nauseated : doing well Objective - Vital Signs Latest vital signs: Vital Signs Temp Pulse Resp BP BP Pulse Ox Pulse Ox 11/12/21 08:25 97 11/12/21 07:54 98.4 F 81 18 123/71 11/12/21 06:29 18 11/12/21 00:59 20 11/12/21 00:15 18 11/12/21 00:09 98.6 F 92 H 20 106/64 91 11/11/21 23:15 18 11/11/21 20:53 20 11/11/21 19:45 99 11/11/21 16:13 98 F 91 H 20 121/78 96 Intake and Output 11/11/21 11/12/21 11/12/21 23:59 07:59 15:59 Intake Total 720 240 240 Balance 720 240 240 Intake: Oral 360 240 240 Intake, Free Water 360 Other: Total, Intake Amount 360 240 240 # Voids Void 1 1 1 - Exam Cardiovascular: Present: Regular rate Lungs: Present: Clear to auscultation Abdomen: Present: normal appearance, normal bowel sounds. Absent: distention, tenderness, guarding, rigidity Extremities: Absent: tenderness Incision: Present: dry, intact - Labs Labs: Abnormal lab results 11/11/21 Range/Units 17:41 Hgb 9.5 L (10.1-14.3) gm/dl Hct 29.3 L D (30.3-42.9) %
--- NOTE | 2021-11-12 21:35 | Event Note ---
Date: 11/12/21 Patient reports worsening abdominal/pelvic pain under umbilicus. States she is passing gas and had a BM today. Denies nausea or vomiting. No urinary symptoms. States pain medication is not completely relieving pain. Patient is A&O. VSS. Abdomen tender in midline just under umbilicus and slightly distended. Consulted with Dr. Cowan re: all of the above. Dr. Cowan orders to repeat abdominal/pelvic CT with and without contrast and to repeat CBC, CMP. Orders put in and nurse notified.
[2021-11-12 23:47] LABS: Basophils % (Auto) 0.4 % (0.0-1.8); Eosinophils # (Auto) 0.2 K/mm3 (0.0-0.4); Eosinophils % (Auto) 2.3 % (0.0-4.3); Hematocrit 26.4 % (30.3-42.9); Hemoglobin 8.6 gm/dl (10.1-14.3); Lymphocytes # (Auto) 1.8 K/mm3 (1.2-5.4); Lymphocytes % (Auto) 25.7 % (13.4-35.0); Mean Corpuscular HGB Conc 33 % (30-34); Mean Corpuscular Volume 85 fl (79-97); Monocytes # (Auto) 0.6 K/mm3 (0.0-0.8); Monocytes % (Auto) 9.1 % (0.0-7.3); Platelet Count 228 K/mm3 (140-440); Red Blood Count 3.13 M/mm3 (3.65-5.03); Red Cell Distribution Width 16.8 % (13.2-15.2)
[2021-11-12 23:52] LABS: Alanine Aminotransferase 16 units/L (7-56); Albumin 2.6 g/dL (3.9-5); Blood Urea Nitrogen 12 mg/dL (7-17); Hemolysis Index 2
[2021-11-13 00:07] LABS: BUN/Creatinine Ratio 30
[2021-11-13] MEDS: IBUPROFEN 800 MG TAB PO PRN ×3 (00:24→11:04)
--- NOTE | 2021-11-13 00:47 | Cat Scan Report ---
CT ABDOMEN AND PELVIS WITHOUT AND WITH CONTRAST INDICATION / CLINICAL INFORMATION: F/U hematoma, s/p supracervical c-hyst BSO 11/08. TECHNIQUE: Axial CT images were obtained through the abdomen and pelvis before and after 100 cc Omnip aque [address] scans at this location are performed using CT dose reduction for ALARA by means of automated exposure control. COMPARISON: CT of abdomen and pelvis 11/10/2021 FINDINGS: LOWER CHEST: Minimal subsegmental atelectasis of the left lower lobe. Appearance of the breast stroma compatible with . LIVER: Minimal periportal edema. Liver otherwise unremarkable. GALLBLADDER: No significant abnormality. BILE DUCTS: No significant abnormality. SPLEEN: No significant abnormality. PANCREAS: No significant abnormality. ADRENALS: No significant abnormality. RIGHT KIDNEY / URETER: 1 to 2 mm stone right kidney unchanged. LEFT KIDNEY / URETER: No significant abnormality. STOMACH / DUODENUM / SMALL BOWEL: No significant abnormality. COLON: No significant abnormality. APPENDIX: No significant abnormality. PERITONEUM: Previous exam demonstrated free air has resolved. Increased attenuation bilaterally in th e region of the lower gonadal veins is stable suggesting small hematomas and/or hemostatic material. Additional fluid within the resection bed of the uterus is grossly stable in size and appearance ronaldo uring 8.0 x 6.1 cm. LYMPH NODES: No significant adenopathy. AORTA / ARTERIES: No significant abnormality. IVC / VEINS: No significant abnormality. URINARY BLADDER: Some residual perivesicular fat stranding is demonstrated likely related to recent s urgery. REPRODUCTIVE ORGANS: Hysterectomy and bilateral oophorectomy. ADDITIONAL ABDOMINAL/PELVIC FINDINGS: Reticular attenuation in the region of the transverse lower abd ominal incision is stable. No discrete subcutaneous fluid collections are present. A small amount of fluid is suggested within the rectus musculature, stable. SKELETAL SYSTEM: No significant abnormality. IMPRESSION: 1. Postoperative changes within the pelvis from recent hysterectomy and bilateral oophorectomy are st able with stable foci of mixed attenuation thought to reflect combination of fluid and/or small hemat omas possibly hemostatic material. The largest collection remains present in the region of the uterin e resection bed. No new fluid collections are demonstrated. 2. Interval resolution of previously demonstrated free intraperitoneal air. 3. Otherwise stable appearance of the lower chest, abdomen, and pelvis. Signer Name: Darin Ziegler II, MD Signed: 11/13/2021 12:43 AM Workstation Name: [id number]
[2021-11-13] MEDS: oxyCODONE /ACETAMINOPHEN 5-325MG TAB PO PRN ×2 (02:39→09:01)
--- NOTE | 2021-11-13 07:16 | Progress Note ---
Subjective - Subjective Date of service: 11/13/21 Principal diagnosis: POD#5 C/hyst, BSO with hematoma without extravasation of contrast Interval history: Patient has no new complaints Tolerating general diet ambulatory +ve flatus +ve BM PE: Vitals stable Abdomen soft nontender with no rebound or guarding Incision is dressed without bleeding Extremities: Negative Homans' sign bilaterally Labs and CT scan: stable postop changes plan for dc to home Miguel A Rodriguez MD Patient reports: appetite normal, voiding normally, pain well controlled, ambulating normally : doing well Objective - Vital Signs Latest vital signs: Vital Signs Temp Pulse Resp BP BP Pulse Ox Pulse Ox 11/13/21 05:48 20 11/13/21 02:39 20 11/13/21 00:24 20 11/13/21 00:20 98.0 F 72 20 106/70 100 11/12/21 21:30 98.2 F 11/12/21 20:28 20 11/12/21 20:00 99 11/12/21 15:16 98.6 F 91 H 18 131/93 99 11/12/21 08:25 97 11/12/21 07:54 98.4 F 81 18 123/71 Intake and Output 11/12/21 11/12/21 11/13/21 15:59 23:59 07:59 Intake Total 600 360 600 Balance 600 360 600 Intake: Oral 600 240 360 Intake, Free Water 120 240 Other: Total, Intake Amount 360 240 360 # Voids Void 1 1 1 # Bowel Movements 1 - Labs Labs: Abnormal lab results 11/12/21 11/12/21 Range/Units 22:56 22:56 RBC 3.13 L (3.65-5.03) M/mm3 Hgb 8.6 L (10.1-14.3) gm/dl Hct 26.4 L (30.3-42.9) % RDW 16.8 H (13.2-15.2) % [place] % (Auto) 9.1 H (0.0-7.3) % Chloride 108.7 H (98-107) mmol/L Creatinine 0.4 L (0.6-1.2) mg/dL Total Protein 5.2 L (6.3-8.2) g/dL Albumin 2.6 L (3.9-5) g/dL
--- NOTE | 2021-11-13 07:50 | Discharge Summary ---
Providers - Providers Date of Admission: 11/08/21 01:26 Date of discharge: 11/13/21 Attending physician: SHAMIKA MATHIS Primary care physician: SHAMIKA MATHIS Hospitalization Reason for admission: induction of labor Delivery: other (c/hyst with BSO) Condition at discharge: Stable Disposition: 01 HOME / SELF CARE / HOMELESS Plan - Discharge Medications Prescriptions: Ibuprofen [Motrin] 600 mg PO Q8H PRN #60 tablet PRN Reason: Pain oxyCODONE /ACETAMINOPHEN [Percocet 5/325] 1 tab PO Q6HR PRN #20 tablet PRN Reason: Pain - Provider Discharge Summary Activity: no sex for 6 weeks Diet: routine Instructions: routine Additional instructions: [] Smoking cessation referral if applicable(refer to patient education folder for contact #) [] Refer to [facility]'s [facility] Booklet Call your doctor immediately for: * Fever > 100.5 * Heavy vaginal bleeding ( >1 pad per hour) * Severe persistent headache * Shortness of breath * Reddened, hot, painful area to leg or breast * Drainage or odor from incision. * Keep incision clean and dry at all times and follow doctor's instructions regarding bathing/showering - Follow up plan Follow up: SHAMIKA MATHIS MD [Primary Care Provider] - 7 Days CADENCE LEDEZMA MD [Staff Physician] - 7 Days
[2021-11-13] MEDS: ASCORBIC ACID 500 MG TAB PO SCH (09:01)
[2021-11-13] MEDS: DOCUSATE SODIUM 100 MG CAP PO SCH (09:01)
[2021-11-13] MEDS: FERROUS SULFATE 325 MG TAB PO SCH (09:01)
[2021-11-13 14:01] VITALS: BP 112/60
== END 2021-11-13 14:00 | disposition home or self-care (01) | DRG 784 ==
LOC: TRG 19:31 → APU 19:33 → LD 11-08 00:32 → TRG 11-08 01:24 → LD 11-08 01:26 → CC1 11-08 18:37 → OB 11-09 16:25
PROVIDERS: ADMIT Obstetrics & Gynecology; ATTEND Obstetrics & Gynecology
PROC: 0UT90ZL Resection of Uterus, Supracervical, Open Approach (ICD-10-PCS; principal; 2021-11-08)
PROC: 0UB70ZZ Excision of Bilateral Fallopian Tubes, Open Approach (ICD-10-PCS; 2021-11-08)
PROC: 10D00Z1 Extraction of Products of Conception, Low, Open Approach (ICD-10-PCS; 2021-11-08)
PROC: 0UB20ZZ Excision of Bilateral Ovaries, Open Approach (ICD-10-PCS; 2021-11-08)
PROC: 30233N1 Transfusion of Nonautologous Red Blood Cells into Peripheral Vein, Percutaneous Approach (ICD-10-PCS; 2021-11-08)
DX: O32.3XX0 Maternal care for face, brow and chin presentation, not applicable or unspecified (principal); O72.1 Other immediate postpartum hemorrhage; Z37.0 Single live birth; Z3A.41 41 weeks gestation of pregnancy; Z20.822 Contact with and (suspected) exposure to COVID-19; O48.0 Post-term pregnancy; O90.81 Anemia of the puerperium; O90.2 Hematoma of obstetric wound; Z88.8 Allergy status to other drugs, medicaments and biological substances
CPT/HCPCS: 36415; 36430; 59025; 74018; 74178; 76816; 76819; 80053; 82565; 84520; 85014; 85018; 85025; 85027; 85384; 85610; 85730; 86850; 86900; 86901; 86920; 88307; 99211; G0378; J1815; J3490; J7120; J7121; G0463; J0290; J0330; J1100; J1170; J1885; J2250; J2270; J2405; J2590; J2704; J2710; J2765; J7040; P9016; Q9967; U0003